=== PATIENT | female | born 1950 | race Caucasian/White ===

== ENCOUNTER 2016-11-01 17:51 | Emergency (ER) | payer MEDICARE ==
[~2016-11-01] VITALS: Ht 157.5 cm; Wt 62.7 kg
[~2016-11-01 17:51] MED LIST: CARB200T PO; OXYC-302 PO; RISP1TAB45 PO
[2016-11-01] MEDS ORDERED: ACETAMINOPHEN 325 MG TABLET PO ONE (18:30)
[2016-11-01] MEDS ORDERED: ACETAMINOPHEN 325 MG TABLET ONE (18:50)
[2016-11-01 20:31] VITALS: BP 128/75
== END 2016-11-01 20:57 | disposition home or self-care (01) ==
LOC: ED 18:54
DX: S39.012A Strain of muscle, fascia and tendon of lower back, initial encounter (principal); G89.29 Other chronic pain; N30.90 Cystitis, unspecified without hematuria; F17.200 Nicotine dependence, unspecified, uncomplicated; X58.XXXA Exposure to other specified factors, initial encounter; Y93.89 Activity, other specified; Y92.89 Other specified places as the place of occurrence of the external cause; Y99.8 Other external cause status
CPT/HCPCS: 72110; 81001; 87086; 99285

== ENCOUNTER 2019-04-23 10:26 | Inpatient (IN) | payer MEDICARE ==
[~2019-04-23] VITALS: Ht 157.5 cm; Wt 53.0 kg
[2019-04-23] MEDS ORDERED: ONDANSETRON ODT 4 MG PO PRN (11:00)
[2019-04-23] MEDS ORDERED: POLYETHYLENE GLYCOL 17 GM PACKET PO PRN (11:00)
[2019-04-23] MEDS ORDERED: DOCUSATE 100 MG CAPSULE PO PRN (11:00)
[2019-04-23] MEDS ORDERED: BISACODYL 10 MG SUPP PR PRN (11:00)
[2019-04-23] MEDS ORDERED: ACETAMINOPHEN 325 MG TABLET PO PRN (11:00)
[2019-04-23 11:56] VITALS: BP 116/75
[2019-04-23] MEDS ORDERED: HYDR50CA PO (11:56)
[2019-04-23] MEDS ORDERED: ZIPR60CA2 PO (11:56)
[2019-04-23] MEDS ORDERED: CILO50TA PO (11:56)
[2019-04-23] MEDS ORDERED: ATOR40TA78 PO (11:56)
[2019-04-23] MEDS ORDERED: CHOL200078 PO (12:18)
[2019-04-23] MEDS ORDERED: HYDROXYZINE PAMOATE 50MG CAP PO PRN (12:30)
[2019-04-23] MEDS: LORazepam 1MG TABLET PO PRN (13:06)
[2019-04-23 15:09] LABS: BASOPHILS # (AUTO) 0.05 x10^3/uL (0-0.1); BASOPHILS % (AUTO) 1 % (0-1); EOSINOPHILS # (AUTO) 0.16 x10^3/uL (0-0.4); EOSINOPHILS % (AUTO) 2 % (1-7); LYMPHOCYTES # (AUTO) 2.27 x10^3/uL (1-3.4); LYMPHOCYTES % (AUTO) 29 % (22-44); MD NO; MEAN CORPUSCULAR HEMOGLOBIN 32.2 pg (27.0-34.8); MEAN CORPUSCULAR HGB CONC 33.2 g/dL (32.4-35.8); MEAN PLATELET VOLUME 7.7 fL (7.4-10.4); MONOCYTES # (AUTO) 1.19 x10^3/uL (0.2-0.8); MONOCYTES % (AUTO) 15 % (2-9); NEUTROPHILS # (AUTO) 4.19 x10^3/uL (1.8-6.8); NEUTROPHILS % (AUTO) 53 % (42-75); PLATELET COUNT 335 x10^3/uL (130-400); RED BLOOD COUNT 4.85 x10^6/uL (3.82-5.3); RED CELL DISTRIBUTION WIDTH 15.1 % (9.6-15.2)
[2019-04-23 15:30] LABS: CHOL/HDL RATIO 2.1; FREE T4 (FREE THYROXINE) 0.94 ng/dL (0.76-1.46); LDL/HDL RATIO 0.9 (0.5-3.0)
[2019-04-23] MEDS: ACAMPROSATE 333 MG TABLET.DR PO SCH ×2 (16:53→20:25)
[2019-04-23 17:52] LABS: MICROSCOPIC AUTO
[2019-04-23 17:55] LABS: CULTURE INDICATED? YES
[2019-04-23 19:30] VITALS: BP 138/82
[2019-04-23] MEDS: ZIPRASIDONE 20MG CAPSULE PO SCH (20:25)
[2019-04-23] MEDS: ATORVASTATIN 40 MG TABLET PO SCH (20:25)
[2019-04-24] MEDS: LORazepam 1MG TABLET PO PRN ×3 (05:35→21:22)
[2019-04-24 07:48] VITALS: BP 127/79
[2019-04-24] MEDS: ACAMPROSATE 333 MG TABLET.DR PO SCH ×3 (08:13→20:46)
[2019-04-24] MEDS: ZIPRASIDONE 20MG CAPSULE PO SCH ×2 (08:13→20:46)
[2019-04-24] MEDS: FOLIC ACID 1 MG TABLET PO SCH (08:13)
[2019-04-24] MEDS: THIAMINE 100MG TABLET PO SCH (08:14)
[2019-04-24] MEDS: NICOTINE 7 MG/24 HR PATCH.TD24 TD SCH (08:14)
[2019-04-24 13:34] LABS: ALANINE AMINOTRANSFERASE 21 U/L (12-78); ALBUMIN 3.6 g/dL (3.4-5.0); ANION GAP 7 mmol/L (5-15); CALCIUM 9.3 mg/dL (8.5-10.1); CHLORIDE 105 mmol/L (98-107); CREATININE 0.77 mg/dL (0.55-1.02)
[2019-04-24 13:37] LABS: ALKALINE PHOSPHATASE 54 U/L (45-117); BILIRUBIN,TOTAL 0.5 mg/dL (0.2-1.0); TOTAL PROTEIN 6.8 g/dL (6.4-8.2)
[2019-04-24] MEDS: FLUOXETINE 10 MG CAP PO SCH (14:43)
[2019-04-24 19:15] VITALS: BP 114/71
[2019-04-24] MEDS: ATORVASTATIN 40 MG TABLET PO SCH (20:46)
[2019-04-25 07:31] VITALS: BP 117/78
[2019-04-25] MEDS: THIAMINE 100MG TABLET PO SCH (08:52)
[2019-04-25] MEDS: FOLIC ACID 1 MG TABLET PO SCH (08:53)
[2019-04-25] MEDS: FLUOXETINE 10 MG CAP PO SCH (08:53)
[2019-04-25] MEDS: ZIPRASIDONE 20MG CAPSULE PO SCH ×2 (08:53→20:25)
[2019-04-25] MEDS: ACAMPROSATE 333 MG TABLET.DR PO SCH ×3 (08:53→20:25)
[2019-04-25] MEDS: NICOTINE 7 MG/24 HR PATCH.TD24 TD SCH (08:54)
[2019-04-25] MEDS: LORazepam 1MG TABLET PO PRN (11:15)
[2019-04-25 20:09] VITALS: BP 103/66
[2019-04-25] MEDS: ATORVASTATIN 40 MG TABLET PO SCH (20:26)
[2019-04-26] MEDS: LORazepam 1MG TABLET PO PRN ×2 (04:20→13:17)
[2019-04-26 07:47] VITALS: BP 105/75
[2019-04-26] MEDS ORDERED: NICOTINE 14MG/24 HR PATCH.TD24 TD ONE (09:00)
[2019-04-26] MEDS: THIAMINE 100MG TABLET PO SCH (10:00)
[2019-04-26] MEDS: ACAMPROSATE 333 MG TABLET.DR PO SCH ×3 (10:00→21:03)
[2019-04-26] MEDS: FLUOXETINE 10 MG CAP PO SCH (10:00)
[2019-04-26] MEDS: FOLIC ACID 1 MG TABLET PO SCH (10:00)
[2019-04-26] MEDS: ZIPRASIDONE 20MG CAPSULE PO SCH ×2 (10:00→21:03)
[2019-04-26 20:10] VITALS: BP 110/75
[2019-04-26] MEDS: ATORVASTATIN 40 MG TABLET PO SCH (21:03)
[2019-04-27] MEDS: LORazepam 1MG TABLET PO PRN ×2 (05:08→13:49)
[2019-04-27 07:50] VITALS: BP 112/73
[2019-04-27] MEDS: FLUOXETINE 10 MG CAP PO SCH (09:04)
[2019-04-27] MEDS: ZIPRASIDONE 20MG CAPSULE PO SCH ×2 (09:04→20:20)
[2019-04-27] MEDS: ACAMPROSATE 333 MG TABLET.DR PO SCH ×3 (09:04→20:20)
[2019-04-27] MEDS: THIAMINE 100MG TABLET PO SCH (09:04)
[2019-04-27] MEDS: FOLIC ACID 1 MG TABLET PO SCH (09:04)
[2019-04-27] MEDS ORDERED: NICOTINE 14MG/24 HR PATCH.TD24 TD SCH (16:30)
[2019-04-27 19:46] VITALS: BP 121/80
[2019-04-27] MEDS: ATORVASTATIN 40 MG TABLET PO SCH (20:20)
[2019-04-28 07:22] VITALS: BP 114/72
[2019-04-28] MEDS: ZIPRASIDONE 20MG CAPSULE PO SCH (08:28)
[2019-04-28] MEDS: THIAMINE 100MG TABLET PO SCH (08:28)
[2019-04-28] MEDS: ACAMPROSATE 333 MG TABLET.DR PO SCH (08:28)
[2019-04-28] MEDS: FOLIC ACID 1 MG TABLET PO SCH (08:28)
[2019-04-28] MEDS: FLUOXETINE 10 MG CAP PO SCH (08:33)
[2019-04-28] MEDS: LORazepam 1MG TABLET PO PRN (08:33)
[2019-04-28] MEDS ORDERED: ATOR40TA78 PO (09:36)
[2019-04-28] MEDS ORDERED: HYDR50CA2 PO (09:36)
[2019-04-28] MEDS ORDERED: ACAM333T7 PO (09:36)
[2019-04-28] MEDS ORDERED: FLUO10CA14 PO (09:36)
[2019-04-28] MEDS ORDERED: ZIPR20CA2 PO (09:36)
[2019-04-28] MEDS ORDERED: NICO-486 TD (09:36)
== END 2019-04-28 11:20 | disposition home or self-care (01) | DRG 885 ==
LOC: 3E 11:18
PROVIDERS: ADMIT Psychiatry & Neurology Psychosomatic Medicine; ATTEND Psychiatry & Neurology Psychosomatic Medicine
DX: F33.2 Major depressive disorder, recurrent severe without psychotic features (principal); R45.851 Suicidal ideations; F20.0 Paranoid schizophrenia; E78.5 Hyperlipidemia, unspecified; F10.20 Alcohol dependence, uncomplicated; F12.90 Cannabis use, unspecified, uncomplicated; F17.210 Nicotine dependence, cigarettes, uncomplicated; G43.909 Migraine, unspecified, not intractable, without status migrainosus; I73.9 Peripheral vascular disease, unspecified; Z79.899 Other long term (current) drug therapy; Z82.5 Family history of asthma and other chronic lower respiratory diseases; Z91.5 Personal history of self-harm; Z83.6 Family history of other diseases of the respiratory system; Y90.9 Presence of alcohol in blood, level not specified; Z88.0 Allergy status to penicillin
CPT/HCPCS: 36415; 71045; 80053; 80061; 81001; 82140; 84439; 84443; 85025; 87086; 93005

== ENCOUNTER 2019-05-16 14:25 | Emergency (ER) | payer MEDICARE ==
[~2019-05-16] VITALS: Ht 157.5 cm; Wt 45.5 kg
[~2019-05-16 14:25] MED LIST changes: +ACAM333T7 PO; +ATOR40TA78 PO; +CHOL200078 PO; +CILO50TA PO; +FLUO10CA14 PO; +HYDR50CA PO; +HYDR50CA2 PO; +NICO-486 TD; +ZIPR20CA2 PO; +ZIPR60CA2 PO
[2019-05-16 14:55] LABS: BASOPHILS # (AUTO) 0.08 x10^3/uL (0-0.1); BASOPHILS % (AUTO) 1 % (0-1); EOSINOPHILS # (AUTO) 0.17 x10^3/uL (0-0.4); EOSINOPHILS % (AUTO) 2 % (1-7); LYMPHOCYTES # (AUTO) 3.36 x10^3/uL (1-3.4); LYMPHOCYTES % (AUTO) 33 % (22-44); MD NO; MEAN CORPUSCULAR HEMOGLOBIN 32.6 pg (27.0-34.8); MEAN CORPUSCULAR HGB CONC 33.7 g/dL (32.4-35.8); MEAN CORPUSCULAR VOLUME 96.8 fL (80-100); MEAN PLATELET VOLUME 7.2 fL (7.4-10.4); MONOCYTES # (AUTO) 0.82 x10^3/uL (0.2-0.8); MONOCYTES % (AUTO) 8 % (2-9); NEUTROPHILS # (AUTO) 5.68 x10^3/uL (1.8-6.8); NEUTROPHILS % (AUTO) 56 % (42-75); PLATELET COUNT 410 x10^3/uL (130-400); RED BLOOD COUNT 4.64 x10^6/uL (3.82-5.3); RED CELL DISTRIBUTION WIDTH 15.6 % (9.6-15.2)
[2019-05-16 15:07] LABS: ALBUMIN 3.9 g/dL (3.4-5.0); ANION GAP 8 mmol/L (5-15); CALCIUM 9.2 mg/dL (8.5-10.1); CHLORIDE 112 mmol/L (98-107); CREATININE 0.63 mg/dL (0.55-1.02); SALICYLATE LEVEL 5.1 mg/dL (2.8-20.0)
--- NOTE | 2019-05-16 15:38 | NUR ---
LATE NOTE ENTRY FOR 1450: PT BIB EMS FROM HOME WITH C/O SI WITH PLAN TO OD ON HOME MEDS MIXED WITH ALCOHOL. PT HAS ETOH ODOR AND STATES LAST DRINK WAS 20 MINUTES PRIOR TO ARRIVAL. PT DENIES HI. Pt belongings removed and placed in ED locker for safe keeping. Pt in hospital gown. Sitter at bedside in direct line of sight for observation. Pt connected to satellite project site monitor, NIBP cuff, and continous pulse ox monitor.
--- NOTE | 2019-05-16 15:42 | NUR ---
Pt resting with eyes closed on gurney with even chest rise and fall. Sitter near doorway in direct line of sight of observation. Pt remains connected to basic combatant swimmer, nibp cuff, and continous pulse ox monitor. No needs expressed at this time. Food tray provided for pt to sitter.
--- NOTE | 2019-05-16 16:18 | NUR ---
Psych PROGRAM ARRANGER attempted to see pt. Pt intoxicated. Psych PROGRAM ARRANGER to revisit with pt tomorrow.
--- NOTE | 2019-05-16 16:19 | NUR ---
Pt resting on gurney in SI/HI secured room with sitter in directl line of sight for observation. No needs expressed at this time.
--- NOTE | 2019-05-16 16:37 | NUR ---
Pt ambulates from room to bathroom with steady gait and balance. Pt provided urine sample. UA sent to lab. Pt back to room and is sitting on gurney. Pt talking to sitter. Pt declines food at this time. Room secured for SI/HI precautions. No needs expressed at this time.
--- NOTE | 2019-05-16 16:42 | NUR ---
Hospital bed requested for pt.
[2019-05-16 16:57] LABS: AMPHETAMINE SCREEN, URINE Negative (Negative); BARBITURATE SCREEN, URINE Negative (Negative); BENZODIAZEPINE SCREEN, URINE Negative (Negative); CANNABINOID SCREEN, URINE Positive (Negative); COCAINE SCREEN, URINE Negative (Negative); METHADONE SCREEN, URINE Negative (Negative); OPIATE SCREEN, URINE Negative (Negative)
--- NOTE | 2019-05-16 16:57 | NUR ---
Pt offered a hospital bed. Pt declined and stated, "I don't want the hospital bed."
--- NOTE | 2019-05-16 17:37 | NUR ---
Pt provided water and decaf coffee per request. No other needs expressed at this time. Pt declining food offered. Pt declining hospital bed offered. Pt sitting on gurney talking to sitter. Room secured for SI/HI. Sitter in direct line of sight for observation.
--- NOTE | 2019-05-16 18:18 | NUR ---
Pt ambulates with sitter with steady gait and balance to restroom. No other needs expressed at this time.
--- NOTE | 2019-05-16 18:59 | NUR ---
Provided bedside report to HUGH Devine. All questions answered. HUGH Devine to assume care of pt at this time.
[2019-05-16] MEDS ORDERED: ACETAMINOPHEN 325 MG TABLET ONE (19:53)
[2019-05-16] MEDS ORDERED: ACETAMINOPHEN 325 MG TABLET PO ONE (20:00)
--- NOTE | 2019-05-16 20:04 | NUR ---
Attempted to breathalyze pt and she was unable to.
--- NOTE | 2019-05-16 23:16 | NUR ---
TP RN: TELEPSYCH CONSULT INITIATED.
--- NOTE | 2019-05-16 23:45 | NUR ---
Tele psych taking place.
--- NOTE | 2019-05-17 01:30 | NUR ---
Referral was faxed to [facility], [facility], [facility], [facility], AND [facility] Called the [facility] to come see pt. For possible admit to the unit.
[2019-05-17 02:21] VITALS: BP 124/74
--- NOTE | 2019-05-17 02:23 | NUR ---
Report given to Jessica at [facility], still pending approval.
--- NOTE | 2019-05-17 03:01 | NUR ---
Pt has no life time days with her medicare according to [facility] and [facility].
--- NOTE | 2019-05-17 03:16 | NUR ---
Report given to lan Phelps to go inpatient psych at [phone].
== END 2019-05-17 03:44 | disposition home or self-care (01) ==
LOC: ED 15:06
DX: F10.229 Alcohol dependence with intoxication, unspecified (principal); R45.851 Suicidal ideations; G40.909 Epilepsy, unspecified, not intractable, without status epilepticus; F17.200 Nicotine dependence, unspecified, uncomplicated; Y90.9 Presence of alcohol in blood, level not specified
CPT/HCPCS: 36415; 80048; 80307; 82040; 85025; 99285

== ENCOUNTER 2019-05-17 03:44 | Inpatient (IN) | payer MEDICARE ==
[~2019-05-17] VITALS: Ht 157.5 cm; Wt 54.1 kg
[2019-05-17 03:45] VITALS: BP_SYST 149; BP_SYST 151; BP_DIAS 81; BP_DIAS 83
[2019-05-17] MEDS ORDERED: BISACODYL 10 MG SUPP PR PRN (04:00)
[2019-05-17] MEDS ORDERED: ACETAMINOPHEN 325 MG TABLET PO PRN (04:00)
[2019-05-17] MEDS ORDERED: DOCUSATE 100 MG CAPSULE PO PRN (04:00)
[2019-05-17] MEDS ORDERED: HYDROXYZINE PAMOATE 25MG CAP PO PRN (04:00)
[2019-05-17] MEDS ORDERED: POLYETHYLENE GLYCOL 17 GM PACKET PO PRN (04:00)
[2019-05-17] MEDS ORDERED: LORazepam 1MG TABLET PO PRN ×2 (04:30→08:30)
[2019-05-17 04:54] VITALS: BP 151/83
[2019-05-17] MEDS ORDERED: HYDROXYZINE PAMOATE 25MG CAP ONE (05:08)
[2019-05-17] MEDS: HYDROXYZINE PAMOATE 50MG CAP PO PRN (05:12)
[2019-05-17 07:25] VITALS: BP 175/78
[2019-05-17] MEDS ORDERED: LORazepam 0.5MG TABLET PO PRN (08:30)
[2019-05-17] MEDS: LORazepam 1MG TABLET PO PRN (08:47)
[2019-05-17] MEDS: CHOLECALCIFEROL 1,000 UNIT TABLET PO SCH (08:47)
[2019-05-17] MEDS: NICOTINE 21 MG/24 HR PATCH.TD24 TD SCH (08:48)
[2019-05-17] MEDS ORDERED: SENNA/DOCUSATE TABLET PO PRN (09:00)
[2019-05-17 12:01] VITALS: BP 155/82
[2019-05-17 12:09] LABS: MICROSCOPIC INDICATED
[2019-05-17 12:24] LABS: CULTURE INDICATED? NO
[2019-05-17] MEDS: FLUOXETINE 10 MG CAP PO SCH (14:36)
[2019-05-17] MEDS: ACAMPROSATE 333 MG TABLET.DR PO SCH ×2 (16:40→20:57)
[2019-05-17] MEDS: ACETAMINOPHEN 325 MG TABLET PO PRN (16:41)
[2019-05-17 20:42] VITALS: BP 150/80
[2019-05-17] MEDS: ATORVASTATIN 40 MG TABLET PO SCH (20:57)
[2019-05-17] MEDS: ZIPRASIDONE 20MG CAPSULE PO SCH (20:57)
[2019-05-18] MEDS ORDERED: HYDROXYZINE PAMOATE 25MG CAP ONE (04:37)
[2019-05-18] MEDS: ACETAMINOPHEN 325 MG TABLET PO PRN (04:38)
[2019-05-18] MEDS: HYDROXYZINE PAMOATE 50MG CAP PO PRN (04:39)
[2019-05-18] MEDS: ASPIRIN 81 MG TABLET EC PO SCH (06:19)
[2019-05-18 07:20] VITALS: BP 146/84
[2019-05-18] MEDS: FLUOXETINE 10 MG CAP PO SCH (08:22)
[2019-05-18] MEDS: ZIPRASIDONE 20MG CAPSULE PO SCH ×2 (08:22→21:40)
[2019-05-18] MEDS: CHOLECALCIFEROL 1,000 UNIT TABLET PO SCH (08:22)
[2019-05-18] MEDS: ACAMPROSATE 333 MG TABLET.DR PO SCH ×3 (08:22→21:41)
[2019-05-18] MEDS: NICOTINE 21 MG/24 HR PATCH.TD24 TD SCH (08:25)
[2019-05-18] MEDS: LORazepam 1MG TABLET PO PRN (08:32)
[2019-05-18 08:54] LABS: ANION GAP 7 mmol/L (5-15); BASOPHILS # (AUTO) 0.03 x10^3/uL (0-0.1); BASOPHILS % (AUTO) 0 % (0-1); CALCIUM 9.1 mg/dL (8.5-10.1); CHLORIDE 102 mmol/L (98-107); CREATININE 0.79 mg/dL (0.55-1.02); EOSINOPHILS % (AUTO) 2 % (1-7); LYMPHOCYTES # (AUTO) 1.89 x10^3/uL (1-3.4); LYMPHOCYTES % (AUTO) 29 % (22-44); MD NO; MEAN CORPUSCULAR HGB CONC 34.1 g/dL (32.4-35.8); MEAN CORPUSCULAR VOLUME 96.8 fL (80-100); MEAN PLATELET VOLUME 7.2 fL (7.4-10.4); MONOCYTES % (AUTO) 9 % (2-9); NEUTROPHILS # (AUTO) 3.86 x10^3/uL (1.8-6.8); NEUTROPHILS % (AUTO) 60 % (42-75); PLATELET COUNT 359 x10^3/uL (130-400); RED BLOOD COUNT 4.83 x10^6/uL (3.82-5.3)
[2019-05-18 09:19] LABS: FREE T4 (FREE THYROXINE) 1.06 ng/dL (0.76-1.46)
[2019-05-18 19:42] VITALS: BP 102/66
[2019-05-18] MEDS: ATORVASTATIN 40 MG TABLET PO SCH (21:41)
[2019-05-19] MEDS ORDERED: HYDROXYZINE PAMOATE 25MG CAP ONE (01:32)
[2019-05-19] MEDS: HYDROXYZINE PAMOATE 50MG CAP PO PRN (01:33)
[2019-05-19] MEDS: ASPIRIN 81 MG TABLET EC PO SCH (05:37)
[2019-05-19 08:24] VITALS: BP 112/74
[2019-05-19] MEDS: CHOLECALCIFEROL 1,000 UNIT TABLET PO SCH (08:34)
[2019-05-19] MEDS: NICOTINE 21 MG/24 HR PATCH.TD24 TD SCH (08:34)
[2019-05-19] MEDS: ZIPRASIDONE 20MG CAPSULE PO SCH ×2 (08:34→20:53)
[2019-05-19] MEDS: ACAMPROSATE 333 MG TABLET.DR PO SCH ×3 (08:34→20:53)
[2019-05-19] MEDS: FLUOXETINE 10 MG CAP PO SCH (08:34)
[2019-05-19] MEDS: LORazepam 0.5MG TABLET PO PRN ×2 (15:01→23:46)
[2019-05-19 19:40] VITALS: BP 111/72
[2019-05-19] MEDS: ATORVASTATIN 40 MG TABLET PO SCH (20:53)
[2019-05-20] MEDS: ASPIRIN 81 MG TABLET EC PO SCH (05:58)
[2019-05-20 07:42] VITALS: BP 123/81
[2019-05-20] MEDS: ACAMPROSATE 333 MG TABLET.DR PO SCH ×3 (09:04→20:20)
[2019-05-20] MEDS: ZIPRASIDONE 20MG CAPSULE PO SCH ×2 (09:04→20:20)
[2019-05-20] MEDS: FLUOXETINE 10 MG CAP PO SCH (09:04)
[2019-05-20] MEDS: CHOLECALCIFEROL 1,000 UNIT TABLET PO SCH (09:04)
[2019-05-20] MEDS: NICOTINE 21 MG/24 HR PATCH.TD24 TD SCH (09:08)
[2019-05-20] MEDS: LORazepam 0.5MG TABLET PO PRN (10:53)
[2019-05-20] MEDS: HYDROXYZINE PAMOATE 50MG CAP PO PRN (15:53)
[2019-05-20] MEDS: ATORVASTATIN 40 MG TABLET PO SCH (20:20)
[2019-05-20 20:28] VITALS: BP 95/60
[2019-05-21] MEDS: LORazepam 0.5MG TABLET PO PRN ×3 (00:03→17:42)
[2019-05-21] MEDS ORDERED: HYDROXYZINE PAMOATE 25MG CAP ONE (05:31)
[2019-05-21] MEDS: ASPIRIN 81 MG TABLET EC PO SCH (05:40)
[2019-05-21] MEDS: HYDROXYZINE PAMOATE 50MG CAP PO PRN (05:42)
[2019-05-21 07:49] VITALS: BP 101/67
[2019-05-21] MEDS: ZIPRASIDONE 20MG CAPSULE PO SCH ×2 (08:41→20:13)
[2019-05-21] MEDS: ACAMPROSATE 333 MG TABLET.DR PO SCH ×3 (08:41→20:12)
[2019-05-21] MEDS: FLUOXETINE 10 MG CAP PO SCH (08:41)
[2019-05-21] MEDS: NICOTINE 21 MG/24 HR PATCH.TD24 TD SCH (08:41)
[2019-05-21] MEDS: CHOLECALCIFEROL 1,000 UNIT TABLET PO SCH (08:45)
[2019-05-21 19:30] VITALS: BP 104/70
[2019-05-21] MEDS: ATORVASTATIN 40 MG TABLET PO SCH (20:13)
[2019-05-22] MEDS: ASPIRIN 81 MG TABLET EC PO SCH (05:18)
[2019-05-22] MEDS: LORazepam 0.5MG TABLET PO PRN ×2 (05:18→13:33)
[2019-05-22 07:00] VITALS: BP 108/75
[2019-05-22] MEDS: CHOLECALCIFEROL 1,000 UNIT TABLET PO SCH (08:18)
[2019-05-22] MEDS: FLUOXETINE 10 MG CAP PO SCH (08:19)
[2019-05-22] MEDS: ACAMPROSATE 333 MG TABLET.DR PO SCH ×3 (08:19→20:14)
[2019-05-22] MEDS: ZIPRASIDONE 20MG CAPSULE PO SCH ×2 (08:19→20:14)
[2019-05-22] MEDS: NICOTINE 21 MG/24 HR PATCH.TD24 TD SCH (08:28)
[2019-05-22] MEDS ORDERED: HYDROXYZINE PAMOATE 25MG CAP ONE ×2 (09:31→20:12)
[2019-05-22] MEDS: HYDROXYZINE PAMOATE 50MG CAP PO PRN ×2 (09:34→20:15)
[2019-05-22 19:29] VITALS: BP 103/70
[2019-05-22] MEDS: ATORVASTATIN 40 MG TABLET PO SCH (20:14)
[2019-05-23] MEDS: LORazepam 0.5MG TABLET PO PRN ×2 (02:07→21:14)
[2019-05-23] MEDS: ASPIRIN 81 MG TABLET EC PO SCH (06:02)
[2019-05-23 07:42] VITALS: BP 113/77
[2019-05-23] MEDS: NICOTINE 21 MG/24 HR PATCH.TD24 TD SCH (07:47)
[2019-05-23] MEDS: FLUOXETINE 10 MG CAP PO SCH (07:48)
[2019-05-23] MEDS: ZIPRASIDONE 20MG CAPSULE PO SCH ×2 (07:48→20:27)
[2019-05-23] MEDS: ACAMPROSATE 333 MG TABLET.DR PO SCH ×3 (07:48→20:29)
[2019-05-23] MEDS: CHOLECALCIFEROL 1,000 UNIT TABLET PO SCH (07:49)
[2019-05-23] MEDS ORDERED: HYDROXYZINE PAMOATE 25MG CAP ONE ×2 (10:48→21:12)
[2019-05-23] MEDS: HYDROXYZINE PAMOATE 50MG CAP PO PRN ×2 (10:50→21:14)
[2019-05-23 20:00] VITALS: BP 102/69
[2019-05-23] MEDS: ATORVASTATIN 40 MG TABLET PO SCH (20:28)
[2019-05-24] MEDS: ASPIRIN 81 MG TABLET EC PO SCH (05:36)
[2019-05-24 07:30] VITALS: BP 116/72
[2019-05-24] MEDS: ZIPRASIDONE 20MG CAPSULE PO SCH ×2 (09:33→20:37)
[2019-05-24] MEDS: FLUOXETINE 10 MG CAP PO SCH (09:33)
[2019-05-24] MEDS: ACAMPROSATE 333 MG TABLET.DR PO SCH ×3 (09:43→20:36)
[2019-05-24] MEDS: NICOTINE 21 MG/24 HR PATCH.TD24 TD SCH (09:43)
[2019-05-24] MEDS: CHOLECALCIFEROL 1,000 UNIT TABLET PO SCH (09:43)
[2019-05-24] MEDS: LORazepam 0.5MG TABLET PO PRN ×2 (09:51→20:37)
[2019-05-24] MEDS ORDERED: HYDROXYZINE PAMOATE 25MG CAP ONE (12:37)
[2019-05-24] MEDS: ACETAMINOPHEN 325 MG TABLET PO PRN (14:20)
[2019-05-24 19:30] VITALS: BP 111/73
[2019-05-24] MEDS: ATORVASTATIN 40 MG TABLET PO SCH (20:37)
[2019-05-25] MEDS: ASPIRIN 81 MG TABLET EC PO SCH (05:44)
[2019-05-25 07:30] VITALS: BP 114/82
[2019-05-25] MEDS: ACETAMINOPHEN 325 MG TABLET PO PRN (08:01)
[2019-05-25] MEDS: ACAMPROSATE 333 MG TABLET.DR PO SCH ×3 (08:23→20:26)
[2019-05-25] MEDS: CHOLECALCIFEROL 1,000 UNIT TABLET PO SCH (08:23)
[2019-05-25] MEDS: ZIPRASIDONE 20MG CAPSULE PO SCH ×2 (08:23→20:27)
[2019-05-25] MEDS: FLUOXETINE 10 MG CAP PO SCH (08:23)
[2019-05-25] MEDS: NICOTINE 21 MG/24 HR PATCH.TD24 TD SCH (08:24)
[2019-05-25] MEDS ORDERED: HYDROXYZINE PAMOATE 25MG CAP ONE (12:19)
[2019-05-25] MEDS: HYDROXYZINE PAMOATE 50MG CAP PO PRN (12:34)
[2019-05-25 19:34] VITALS: BP 102/69
[2019-05-25] MEDS: LORazepam 0.5MG TABLET PO PRN (19:37)
[2019-05-25] MEDS: ATORVASTATIN 40 MG TABLET PO SCH (20:26)
[2019-05-26] MEDS: ASPIRIN 81 MG TABLET EC PO SCH (05:06)
[2019-05-26] MEDS ORDERED: HYDROXYZINE PAMOATE 25MG CAP ONE (06:09)
[2019-05-26] MEDS: HYDROXYZINE PAMOATE 50MG CAP PO PRN (06:11)
[2019-05-26 07:31] VITALS: BP 132/81
[2019-05-26] MEDS: CHOLECALCIFEROL 1,000 UNIT TABLET PO SCH (08:13)
[2019-05-26] MEDS: ACAMPROSATE 333 MG TABLET.DR PO SCH (08:14)
[2019-05-26] MEDS: FLUOXETINE 10 MG CAP PO SCH (08:14)
[2019-05-26] MEDS: ZIPRASIDONE 20MG CAPSULE PO SCH (08:14)
[2019-05-26] MEDS: NICOTINE 21 MG/24 HR PATCH.TD24 TD SCH (08:16)
[2019-05-26] MEDS ORDERED: ZIPR20CA2 PO (10:29)
[2019-05-26] MEDS ORDERED: ACAM333T7 PO (10:29)
[2019-05-26] MEDS ORDERED: FLUO10CA14 PO (10:29)
[2019-05-26] MEDS ORDERED: NICO-487 TD (10:29)
[2019-05-26] MEDS ORDERED: HYDR50CA2 PO (10:29)
[2019-05-26] MEDS ORDERED: ASPI81TA45 PO (10:29)
[2019-05-26] MEDS ORDERED: CHOL10003 PO (10:29)
[2019-06-21] MEDS ORDERED: HYDR50CA PO (13:35)
[2019-06-21] MEDS ORDERED: FLUO20CA23 PO (13:35)
[2019-06-21] MEDS ORDERED: ZIPR40CA2 PO (13:35)
[2019-06-21] MEDS ORDERED: NICO-486 TD (13:35)
[2019-06-21] MEDS ORDERED: MULT1TAB60 PO (13:35)
[2019-06-25] MEDS ORDERED: ATOR40TA PO (10:10)
== END 2019-05-26 11:00 | DRG 885 ==
LOC: 3E 03:44
PROVIDERS: ADMIT Psychiatry & Neurology Psychosomatic Medicine; ATTEND Psychiatry & Neurology Psychosomatic Medicine
DX: F33.2 Major depressive disorder, recurrent severe without psychotic features (principal); R45.851 Suicidal ideations; E78.5 Hyperlipidemia, unspecified; F10.229 Alcohol dependence with intoxication, unspecified; F12.10 Cannabis abuse, uncomplicated; F17.210 Nicotine dependence, cigarettes, uncomplicated; F20.0 Paranoid schizophrenia; G43.909 Migraine, unspecified, not intractable, without status migrainosus; G47.00 Insomnia, unspecified; I25.10 Atherosclerotic heart disease of native coronary artery without angina pectoris; I10 Essential (primary) hypertension; I73.9 Peripheral vascular disease, unspecified; Z79.82 Long term (current) use of aspirin; Z88.0 Allergy status to penicillin; Z79.899 Other long term (current) drug therapy; Z82.5 Family history of asthma and other chronic lower respiratory diseases
CPT/HCPCS: 36415; 80048; 80307; 81001; 82040; 82140; 82607; 84439; 84443; 85025; 93005; 99285

== ENCOUNTER 2019-06-07 16:49 | Emergency (ER) | payer MEDICARE ==
[~2019-06-07] VITALS: Ht 157.5 cm; Wt 61.5 kg
[~2019-06-07 16:49] MED LIST changes: +ASPI81TA45 PO; +CHOL10003 PO; +NICO-487 TD
--- NOTE | 2019-06-07 16:58 | NUR ---
BELOW IS A LIST OF BLISTER PACK MEDS THAT PT HAD IN HER POSSESION. I HAVE LISTED THE MED, DATE RX FILLED, NUMBER OF PILLS ISSUED AND NUMBER OF PILLS REMAINING ATORVASTATIN 40MG FILLED 04/11 QTY 30 12 REMAINING HYDROXIZINE 50MG FILLED 3/ QTY 30 0 REMAINING ZIPRASIDONE 60MG FILLED 04/08 QTY 30 7 REMAINING MVI/D3/ZIPRASADONE 60MG FILLED 04/11 6 REMAINING FLUOXETINE 10MG FILLED 3/5 QTY 30 4 REMAINING HYDROXIZINE 50MG FILLED 03/10 QTY 30 [address]AIN[address] JERR[address] 333MG FILLED 3/5 QTY 52 AND 52 REMAINING
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
--- NOTE | 2019-06-07 17:02 | NUR ---
EKG AND VITALS OBTAINED BY THIS TECH
--- NOTE | 2019-06-07 17:30 | NUR ---
MOLDED PARTS INSPECTOR: MEGHAN REQUESTED FROM [facility]
[2019-06-07 17:33] LABS: ALBUMIN 3.6 g/dL (3.4-5.0); ANION GAP 9 mmol/L (5-15); CALCIUM 8.8 mg/dL (8.5-10.1); CHLORIDE 109 mmol/L (98-107); SALICYLATE LEVEL 5.2 mg/dL (2.8-20.0)
[2019-06-07 17:35] LABS: ALANINE AMINOTRANSFERASE 50 U/L (12-78); ALKALINE PHOSPHATASE 60 U/L (45-117); BASOPHILS # (AUTO) 0.01 x10^3/uL (0-0.1); BASOPHILS % (AUTO) 0 % (0-1); BILIRUBIN,TOTAL 0.3 mg/dL (0.2-1.0); CREATININE 0.58 mg/dL (0.55-1.02); EOSINOPHILS % (AUTO) 2 % (1-7); LYMPHOCYTES # (AUTO) 2.67 x10^3/uL (1-3.4); LYMPHOCYTES % (AUTO) 40 % (22-44); MD NO; MEAN CORPUSCULAR HEMOGLOBIN 32.3 pg (27.0-34.8); MEAN CORPUSCULAR HGB CONC 33.3 g/dL (32.4-35.8); MEAN PLATELET VOLUME 7.3 fL (7.4-10.4); MONOCYTES # (AUTO) 0.45 x10^3/uL (0.2-0.8); MONOCYTES % (AUTO) 7 % (2-9); NEUTROPHILS # (AUTO) 3.43 x10^3/uL (1.8-6.8); NEUTROPHILS % (AUTO) 52 % (42-75); PLATELET COUNT 368 x10^3/uL (130-400); RED BLOOD COUNT 4.45 x10^6/uL (3.82-5.3); RED CELL DISTRIBUTION WIDTH 15.3 % (9.6-15.2); TOTAL PROTEIN 6.8 g/dL (6.4-8.2)
--- NOTE | 2019-06-07 17:37 | NUR ---
CLOTHES, PURSE AND MEDICATIONS IN BELONGINGS BAGS X 2. LABELED AND DOUBLE BAGGED AND PLACED IN LOCKER. VIDEO GAME SCRIPT WRITER, YAIMA AWARE THAT MEDS WERE PLACED IN [facility] WILL NOT ACCEPT MEDICATIONS FROM THE [facility]
[2019-06-07 17:46] LABS: AMPHETAMINE SCREEN, URINE Negative (Negative); BARBITURATE SCREEN, URINE Negative (Negative); BENZODIAZEPINE SCREEN, URINE Negative (Negative); CANNABINOID SCREEN, URINE Negative (Negative); COCAINE SCREEN, URINE Negative (Negative); METHADONE SCREEN, URINE Negative (Negative); OPIATE SCREEN, URINE Negative (Negative)
[2019-06-07] MEDS ORDERED: SODIUM CHLORIDE 0.9% 1,000ML IVBOLUS ONE (18:00)
[2019-06-07] MEDS ORDERED: SODIUM CHLORIDE FLUSH 10ML SYR IVF ONE (18:00)
--- NOTE | 2019-06-07 18:18 | NUR ---
SUICIDE MEAL TRAY PROVIDED
--- NOTE | 2019-06-07 18:45 | NUR ---
REPORT TO HUGH BECK.
--- NOTE | 2019-06-07 18:53 | NUR ---
Report recieved from Clara REESE. Pt moved to 1, room secured, sitter at bedside.
--- NOTE | 2019-06-07 18:59 | NUR ---
Report given to Beth REESE.
--- NOTE | 2019-06-07 19:04 | NUR ---
Report received from HUGH Sailnas
--- NOTE | 2019-06-07 20:34 | NUR ---
PATIENT RESTING ON GURNEY, RESPIRATIONS EVEN AND UNLABORED. VSS, SPO2 AND BP MONITORING IN PLACE. SITTER AT DOOR
--- NOTE | 2019-06-07 20:35 | NUR ---
CALL PLACED TO HOUSEKEEPING FOR HOSPITAL BED
--- NOTE | 2019-06-07 21:26 | NUR ---
PATIENT RESTING ON GURNEY, RESPIRATIONS EVEN AND UNLABORED. VSS, SPO2 AND BP MONITORING IN PLACE. SITTER AT DOOR
--- NOTE | 2019-06-07 22:30 | NUR ---
PATIENT TRANSFERRED TO HOSPITAL BED. PIV REMOVED PER PATIENT REQUEST, AND OKAY WITH
[2019-06-07 22:41] LABS: MICROSCOPIC INDICATED
[2019-06-07 22:42] LABS: CULTURE INDICATED? YES
--- NOTE | 2019-06-07 23:44 | NUR ---
PATIENT SLEEPING IN HOSPITAL BED, RESPIRATIONS EVEN AND UNLABORED. VSS. SITTER AT DOOR
--- NOTE | 2019-06-08 00:27 | NUR ---
BREAK RN: PT SLEEPING, NO DISTRESS NOTED. ROOM REMAINS SECURE WITH SITTER OUTSIDE DOOR.
--- NOTE | 2019-06-08 01:30 | NUR ---
PATIENT SLEEPING IN HOSPITAL BED, RESPIRATIONS EVEN AND UNLABORED. VSS. SITTER AT DOOR
--- NOTE | 2019-06-08 02:29 | NUR ---
PATIENT SLEEPING IN HOSPITAL BED, RESPIRATIONS EVEN AND UNLABORED. VSS. SITTER AT DOOR
--- NOTE | 2019-06-08 03:32 | NUR ---
PATIENT SLEEPING IN HOSPITAL BED, RESPIRATIONS EVEN AND UNLABORED. VSS. SITTER AT DOOR
--- NOTE | 2019-06-08 04:25 | NUR ---
PATIENT AMBULATORY WITH STEADY GAIT TO RESTROOM. BREATHALYZER 0.000
--- NOTE | 2019-06-08 04:43 | NUR ---
REPORT RECEIVED FROM BARTOLOME Christensen RN.
--- NOTE | 2019-06-08 04:45 | NUR ---
REPORT GIVEN TO HUGH CASTRO
--- NOTE | 2019-06-08 05:23 | NUR ---
Patient now sober so packet faxed to [facility], , [facility], [facility], and [facility]. Not faxed to [facility] as they are full at this time. Conformations received.
--- NOTE | 2019-06-08 05:35 | NUR ---
PT RESTING ON HOSPITAL BED WATCHING TV. PT DENIES ANY NEEDS AT THIS TIME. SITTER IN HALLWAY WITHIN LINE OF SIGHT, ROOM SECURED.
--- NOTE | 2019-06-08 05:53 | NUR ---
Patient out of "lifetime days" per Erin from [facility] so patient denied.
--- NOTE | 2019-06-08 06:00 | NUR ---
PT RESTING ON HOSPITAL BED WITH EYES CLOSED, RESPIRATIONS EVEN AND NONLABORED. ROOM SECURED, SITTER IN HALLWAY WITHIN LINE OF SIGHT.
[2019-06-08] MEDS ORDERED: LORazepam 1MG TABLET ONE (06:47)
--- NOTE | 2019-06-08 06:50 | NUR ---
PT AWAKE AND UP TO BATHROOM. PT REQUESTED ATIVAN STATES "I FEEL ANXIOUS, IM BREATHING FAST I NEED ATIVAN". PT MEDICATED PER APR. PT BACK TO HOSPITAL BED. SITTER IN HALLWAY WITHIN LINE OF SIGHT, ROOM SECURED.
[2019-06-08] MEDS ORDERED: LORazepam 1MG TABLET PO ONE (07:00)
--- NOTE | 2019-06-08 08:00 | NUR ---
PT PROVIDED WITH MEAL TRAY, SUICIDE REASSEMENT COMPLETED. SI PRECAUTIONS OBSERVED. NO OTHER NEEDS AT THIS TIME
[2019-06-08 08:06] VITALS: BP 149/83
--- NOTE | 2019-06-08 11:03 | NUR ---
[facility] and [facility] require a negative covid in order to consider accepting pt.
--- NOTE | 2019-06-08 11:18 | NUR ---
PT RESTING ON BED, UP TO BR WITH STEADY GAIT, BACK TO HOSPITAL BED. REPORTS NO NEEDS AT THIS TIME, SITTER REMAINS IN PLACE
[2019-06-21] MEDS ORDERED: FLUO20CA23 PO (13:35)
[2019-06-21] MEDS ORDERED: MULT1TAB60 PO (13:35)
[2019-06-21] MEDS ORDERED: HYDR50CA PO (13:35)
[2019-06-21] MEDS ORDERED: ZIPR40CA2 PO (13:35)
[2019-06-21] MEDS ORDERED: NICO-486 TD (13:35)
[2019-06-25] MEDS ORDERED: ATOR40TA PO (10:10)
== END 2019-06-08 13:54 | disposition home or self-care (01) ==
LOC: ED 17:23
DX: T43.592A Poisoning by other antipsychotics and neuroleptics, intentional self-harm, initial encounter (principal); T46.6X2A Poisoning by antihyperlipidemic and antiarteriosclerotic drugs, intentional self-harm, initial encounter; R45.851 Suicidal ideations; F10.220 Alcohol dependence with intoxication, uncomplicated; G92 Toxic encephalopathy; G40.909 Epilepsy, unspecified, not intractable, without status epilepticus; F32.9 Major depressive disorder, single episode, unspecified; F39 Unspecified mood [affective] disorder; I95.9 Hypotension, unspecified; R94.31 Abnormal electrocardiogram [ECG] [EKG]; Y92.9 Unspecified place or not applicable; Y90.0 Blood alcohol level of less than 20 mg/100 ml
CPT/HCPCS: 36415; 71045; 80053; 80307; 81001; 83735; 84443; 85025; 87086; 93005; 99291; J7030; 99285

== ENCOUNTER → 2019-06-13 | Emergency (ER) | payer MEDICARE ==
[~2019-06-13] VITALS: Ht 160 cm; Wt 70.0 kg
[~2019-06-13] MED LIST changes: +ACETAMINOPHEN 500 MG TABLET ONE; +ACETAMINOPHEN 500 MG TABLET PO ONE; +ATOR40TA PO; +FLUO20CA23 PO; +LORazepam 1MG TABLET ONE; +LORazepam 1MG TABLET PO ONE; +MULT1TAB60 PO; +ZIPR40CA2 PO
[2019-06-13 15:28] LABS: BASOPHILS # (AUTO) 0.11 x10^3/uL (0-0.1); BASOPHILS % (AUTO) 2 % (0-1); EOSINOPHILS # (AUTO) 0.06 x10^3/uL (0-0.4); EOSINOPHILS % (AUTO) 1 % (1-7); LYMPHOCYTES # (AUTO) 2.44 x10^3/uL (1-3.4); LYMPHOCYTES % (AUTO) 38 % (22-44); MD NO; MEAN CORPUSCULAR HEMOGLOBIN 32.5 pg (27.0-34.8); MEAN CORPUSCULAR HGB CONC 32.9 g/dL (32.4-35.8); MEAN CORPUSCULAR VOLUME 98.6 fL (80-100); MEAN PLATELET VOLUME 7.1 fL (7.4-10.4); MONOCYTES # (AUTO) 0.66 x10^3/uL (0.2-0.8); MONOCYTES % (AUTO) 10 % (2-9); NEUTROPHILS # (AUTO) 3.23 x10^3/uL (1.8-6.8); NEUTROPHILS % (AUTO) 50 % (42-75); PLATELET COUNT 320 x10^3/uL (130-400); RED BLOOD COUNT 4.27 x10^6/uL (3.82-5.3); RED CELL DISTRIBUTION WIDTH 16.4 % (9.6-15.2)
[2019-06-13 15:56] LABS: ALANINE AMINOTRANSFERASE 222 U/L (12-78); ALBUMIN 3.5 g/dL (3.4-5.0); ANION GAP 7 mmol/L (5-15); CALCIUM 8.7 mg/dL (8.5-10.1); CHLORIDE 109 mmol/L (98-107); CREATININE 0.59 mg/dL (0.55-1.02); SALICYLATE LEVEL 4.9 mg/dL (2.8-20.0)
--- NOTE | 2019-06-13 15:56 | NUR ---
SARWAT NICOLE SPOKE WITH PT BRIEFLY. PT UOB TO BATHROOM WITH ASSISTANCE.
[2019-06-13 15:59] LABS: ALKALINE PHOSPHATASE 61 U/L (45-117); BILIRUBIN,TOTAL 0.3 mg/dL (0.2-1.0)
[2019-06-13 16:16] LABS: AMPHETAMINE SCREEN, URINE Negative (Negative); BARBITURATE SCREEN, URINE Negative (Negative); BENZODIAZEPINE SCREEN, URINE Negative (Negative); CANNABINOID SCREEN, URINE Negative (Negative); COCAINE SCREEN, URINE Negative (Negative); METHADONE SCREEN, URINE Negative (Negative); OPIATE SCREEN, URINE Negative (Negative)
--- NOTE | 2019-06-13 17:52 | NUR ---
PROVIDED DINNER. PT MORE CONVERSIVE AND REMAINS COOPERATIVE
--- NOTE | 2019-06-13 19:06 | NUR ---
REPORT TO GINI REESE
--- NOTE | 2019-06-13 19:11 | NUR ---
REPORT OF PT FROM HUGH CERNA. PT RESTING IN [facility] AT THIS TIME; JERMAIN. SITTER OUTSIDE OF ROOM FOR DIRECT OBSERVATION OF PT AT THIS TIME.
--- NOTE | 2019-06-13 21:42 | NUR ---
PT ASLEEP IN [facility] AT THIS TIME; NADN. EQUAL BILATERAL RISE AND FALL OF CHEST NOTED. PT HAS SITTER OUTSIDE OF PT ROOM FOR DIRECT OBSERVATION OF PT.
--- NOTE | 2019-06-13 22:42 | NUR ---
PT ASLEEP IN [facility] AT THIS TIME; JERMAIN. SITTER OUTSIDE OF PT ROOM FOR DIRECT OBSERVATION OF PT AT THIS TIME.
--- NOTE | 2019-06-13 23:59 | NUR ---
PT AMBULATES WITH SLOW BUT STEADY GAIT TO [facility] TO VOID. PT RESTING IN [facility] AT THIS TIME, NADN. PT HAS SITTER OUTSIDE OF ROOM FOR DIRECT OBSERVATION OF PT.
--- NOTE | 2019-06-14 00:24 | NUR ---
pt asleep in [facility] at this time; jeannette. sitter outside of pt room for direct observation of pt.
--- NOTE | 2019-06-14 01:57 | NUR ---
pt asleep in [facility] at this time with sitter outside of room for direct observation of pt;
--- NOTE | 2019-06-14 02:10 | NUR ---
pt asleep in [facility]; jeannette. sitter outside of pt room for direct observation of pt.
--- NOTE | 2019-06-14 03:28 | NUR ---
Pt ambulates to [facility] with steady gait. pt back to [facility] at this time. pt has sitter outside of room for direct observation of pt.
--- NOTE | 2019-06-14 05:19 | NUR ---
PT AWAKENED FOR VS. VSS AT THIS TIME. SITTER OUTSIDE OF ROOM FOR DIRECT OBSERVATION OF PT.
--- NOTE | 2019-06-14 06:35 | NUR ---
eric from [facility] called and stated the pt is out of lifetime days, pt would have to self pay to go there. will notifry primary rn.
--- NOTE | 2019-06-14 06:50 | NUR ---
Patients packet was faxed to all psych facilities and conformation received.
--- NOTE | 2019-06-14 06:53 | NUR ---
REPORT OF PT TO HUGH PETE.
--- NOTE | 2019-06-14 09:25 | NUR ---
GOT PATIETN TYLENOL FOR HEADACHE. SHE IS NOW FEELING BETTER AND RESTING QUIETLY, ATE ALL OF BREAKFAST.
--- NOTE | 2019-06-14 10:23 | NUR ---
PATIENT RESTING QUIETLY BUT STATES SHE IS FEELING ANXIOUS, REQUESTING ATIVAN. WILL ASK MD IF THIS IS A POSSIBILITY FOR HER. VSS
[2019-06-14 10:59] VITALS: BP 145/78
== END ==
LOC: ED 15:50
DX: F10.221 Alcohol dependence with intoxication delirium (principal); R45.851 Suicidal ideations; G40.909 Epilepsy, unspecified, not intractable, without status epilepticus; F32.9 Major depressive disorder, single episode, unspecified; R94.31 Abnormal electrocardiogram [ECG] [EKG]; Y90.0 Blood alcohol level of less than 20 mg/100 ml
CPT/HCPCS: 36415; 80053; 80307; 85025; 93005; 99285

== ENCOUNTER 2019-07-14 19:11 | Emergency (ER) | payer MEDICARE ==
[~2019-07-14] VITALS: Ht 157.5 cm; Wt 40.9 kg
[~2019-07-14 19:11] MED LIST changes: -ACETAMINOPHEN 500 MG TABLET ONE; -ACETAMINOPHEN 500 MG TABLET PO ONE; -LORazepam 1MG TABLET ONE; -LORazepam 1MG TABLET PO ONE; +MULT-449 PO; -MULT1TAB60 PO
--- NOTE | 2019-07-14 19:31 | NUR ---
PT BIB EMS WITH C/O OF SI AT HOME, PT STATES " I DRINK A LOT AND THEN I WANT TO HURT MYSELF" "I WAS GOING TO TAKE ALL MY PILLS, BUT INSTEAD I CALLED". PT HAS HX OF SI/SA, REPORT HX OF OVERDOSE ON PRESCRIPTION MEDICATIONS, REPORTS SHE HAS NOT BEEN TAKING HER PRESCRIPTION PSYCH MEDICATIONS FOR [id number]. IN TRANSIT PT REPORTED CP, N/V SOB, AND ANXIETY. EMS PROVIDED [facility] ZOFRAN, 0.4MG NITRO TAB SL, 250ML NS, AND 324ASA. PT REPORTS CURRENT 7/10 CP WORSE WITH INCREASED ANXIETY. EKG DONE ON TRIAGE. PT CONNECTED TO ALL MONITORING, CALL LIGHT WITHIN REACH, BED IN LOW POSITION X2 RAILS RAISED.
[2019-07-14 19:59] LABS: BASOPHILS # (AUTO) 0.19 x10^3/uL (0-0.1); BASOPHILS % (AUTO) 4 % (0-1); EOSINOPHILS # (AUTO) 0.11 x10^3/uL (0-0.4); EOSINOPHILS % (AUTO) 2 % (1-7); LYMPHOCYTES # (AUTO) 2.68 x10^3/uL (1-3.4); LYMPHOCYTES % (AUTO) 48 % (22-44); MD NO; MEAN CORPUSCULAR HEMOGLOBIN 33.2 pg (27.0-34.8); MEAN CORPUSCULAR HGB CONC 33.5 g/dL (32.4-35.8); MEAN PLATELET VOLUME 7.2 fL (7.4-10.4); MONOCYTES # (AUTO) 0.69 x10^3/uL (0.2-0.8); MONOCYTES % (AUTO) 12 % (2-9); NEUTROPHILS # (AUTO) 1.92 x10^3/uL (1.8-6.8); NEUTROPHILS % (AUTO) 34 % (42-75); PLATELET COUNT 305 x10^3/uL (130-400); RED BLOOD COUNT 4.05 x10^6/uL (3.82-5.3); RED CELL DISTRIBUTION WIDTH 16.4 % (9.6-15.2)
[2019-07-14 20:12] LABS: ALANINE AMINOTRANSFERASE 65 U/L (12-78); ALBUMIN 3.3 g/dL (3.4-5.0); ANION GAP 12 mmol/L (5-15); CALCIUM 8.6 mg/dL (8.5-10.1); CHLORIDE 107 mmol/L (98-107); CREATININE 0.58 mg/dL (0.55-1.02); SALICYLATE LEVEL 6.9 mg/dL (2.8-20.0)
--- NOTE | 2019-07-14 20:16 | NUR ---
PT AMBULATED TO AND FROM BATHROOM WITH STEADY GAIT. PT AOX4. PT RESTING ON GURNEY WITH X2 RAILS RAISED. MONITORING REAPPLIED, CALL LIGHT WITHIN REACH.
[2019-07-14 20:17] LABS: ALKALINE PHOSPHATASE 64 U/L (45-117); BILIRUBIN,TOTAL 0.2 mg/dL (0.2-1.0); TOTAL PROTEIN 6.5 g/dL (6.4-8.2); TROPONIN I < 0.015 ng/mL (0.000-0.045)
[2019-07-14 20:35] LABS: AMPHETAMINE SCREEN, URINE Negative (Negative); BARBITURATE SCREEN, URINE Negative (Negative); BENZODIAZEPINE SCREEN, URINE Negative (Negative); CANNABINOID SCREEN, URINE Negative (Negative); COCAINE SCREEN, URINE Negative (Negative); METHADONE SCREEN, URINE Negative (Negative); OPIATE SCREEN, URINE Negative (Negative)
--- NOTE | 2019-07-14 21:22 | NUR ---
PT RESTING ON GURNEY WITH EYES CLOSED, RESPIRATIONS EVEN AND NONLABORED, CALL LIGHT WITHIN REACH, ALL SAFETY MEASURES IN PLACE.
--- NOTE | 2019-07-14 23:50 | NUR ---
PT UP TO BATHROOM WITH STEADY GAIT. PT RECONNECTED TO MONITORING, CALL LIGHT WITHIN REACH.
--- NOTE | 2019-07-15 00:33 | NUR ---
PT RESTING ON GURNEY WITH EYES CLOSED, RESPIRATIONS EVEN AND NONLABORED.
--- NOTE | 2019-07-15 01:23 | NUR ---
resting quietly, resp rate even and regular
[2019-07-15 01:51] VITALS: BP 143/76
--- NOTE | 2019-07-15 01:52 | NUR ---
PT PROVIDED WATER.
--- NOTE | 2019-07-15 02:16 | NUR ---
MT: TELEPSYCH PAGED AND MONITOR PLACED IN ROOM.
--- NOTE | 2019-07-15 03:28 | NUR ---
MT:T TELEPSYCH DOCTOR CALLED AND STATED PATIENT IS FIT FOR DISCHARGE.
== END 2019-07-15 04:24 | disposition home or self-care (01) ==
LOC: ED 20:57
DX: F20.0 Paranoid schizophrenia (principal); F10.220 Alcohol dependence with intoxication, uncomplicated; R45.851 Suicidal ideations; F32.9 Major depressive disorder, single episode, unspecified; F17.210 Nicotine dependence, cigarettes, uncomplicated; Y90.9 Presence of alcohol in blood, level not specified
CPT/HCPCS: 36415; 71045; 80053; 80307; 84484; 85025; 93005; 99285

== ENCOUNTER 2019-07-17 16:37 | Emergency (ER) | payer MEDICARE ==
[~2019-07-17] VITALS: Ht 157.5 cm; Wt 37.0 kg
[~2019-07-17 16:37] MED LIST changes: -MULT-449 PO; +MULT1TAB60 PO
--- NOTE | 2019-07-17 16:52 | NUR ---
MICKI PAVON FROM HOME. PT C/O SI, WITH PLAN BUT NO ATTEMPT. PT'S PLAN IS TO TAKE ALL HER MEDS AND DRINK ETOH. PT = Addendum: 07/17/19 at 1653 by [email or web address] PT +ETOH. 1 BAG BELONGINGS PLACED IN ED LOCKER. ROOM SECURE. PT IN DIRECT SIGHT OF SITTER. CABRERA IN FOR ASSESSMENT. OK TO PROVIDE MEAL TRAY. PT ATTEMPTED TO URINATE W/O SUCCESS.
--- NOTE | 2019-07-17 17:10 | NUR ---
PT DID NOT COME IN ON A LEGAL HOLD.
[2019-07-17 17:25] LABS: MEAN CORPUSCULAR HEMOGLOBIN 33.1 pg (27.0-34.8); MEAN CORPUSCULAR HGB CONC 32.9 g/dL (32.4-35.8); MEAN CORPUSCULAR VOLUME 100.6 fL (80-100); PLATELET COUNT 281 x10^3/uL (130-400); RED BLOOD COUNT 4.01 x10^6/uL (3.82-5.3)
[2019-07-17 17:32] LABS: ALANINE AMINOTRANSFERASE 143 U/L (12-78); ALBUMIN 3.3 g/dL (3.4-5.0); ANION GAP 9 mmol/L (5-15); CALCIUM 8.8 mg/dL (8.5-10.1); CHLORIDE 109 mmol/L (98-107); CREATININE 0.77 mg/dL (0.55-1.02); SALICYLATE LEVEL 4.2 mg/dL (2.8-20.0)
[2019-07-17 17:34] LABS: ALKALINE PHOSPHATASE 77 U/L (45-117); BILIRUBIN,TOTAL 0.3 mg/dL (0.2-1.0); TOTAL PROTEIN 6.7 g/dL (6.4-8.2)
--- NOTE | 2019-07-17 17:36 | NUR ---
PT UNABLE TO BLOW HARD ENOUGH FOR BREATHALYZER TEST. MD NOTIFIED AND WILL ORDER ETOH FROM [facility]RA[facility].
[2019-07-17 17:53] LABS: BASOPHILS # (AUTO) 0.07 x10^3/uL (0-0.1); BASOPHILS % (AUTO) 1 % (0-1); EOSINOPHILS # (AUTO) 0.09 x10^3/uL (0-0.4); EOSINOPHILS % (AUTO) 1 % (1-7); LYMPHOCYTES % (AUTO) 34 % (22-44); MD SCAN; MONOCYTES # (AUTO) 0.51 x10^3/uL (0.2-0.8); MONOCYTES % (AUTO) 7 % (2-9); NEUTROPHILS # (AUTO) 3.96 x10^3/uL (1.8-6.8); NEUTROPHILS % (AUTO) 56 % (42-75)
--- NOTE | 2019-07-17 18:09 | NUR ---
MEAL TRAY PROVIDED, SAFETY PRECAUTIONS IN PLACE.
[2019-07-17 18:17] LABS: AMPHETAMINE SCREEN, URINE Negative (Negative); BARBITURATE SCREEN, URINE Negative (Negative); BENZODIAZEPINE SCREEN, URINE Negative (Negative); CANNABINOID SCREEN, URINE Positive (Negative); COCAINE SCREEN, URINE Negative (Negative); METHADONE SCREEN, URINE Negative (Negative); OPIATE SCREEN, URINE Negative (Negative)
--- NOTE | 2019-07-17 19:10 | NUR ---
ETOH 0.245. TELEPSYCH AFTER PT VIDYA UP. PT RESTING COMFORTABLY ON GURNEY. NADN. PT IN DIRECT SIGHT OF SITTER.
--- NOTE | 2019-07-17 20:30 | NUR ---
PT SLEEPING ON SAGAR. JERMAIN. PT IN DIRECT SIGHT OF SITTER.
--- NOTE | 2019-07-17 20:44 | NUR ---
BREATHALYZER 0.13. MD NOTIFIED, WANTS LESS THAN 0.08.
--- NOTE | 2019-07-17 21:45 | NUR ---
PT SLEEPING ON SAGAR. JERMAIN. PT IN DIRECT SIGHT OF SITTER.
--- NOTE | 2019-07-17 22:11 | NUR ---
REPORT GIVEN TO KSENIA REESE.
--- NOTE | 2019-07-17 23:17 | NUR ---
TP rn: NORMA informed of pt on hold and will get to this rn on whether they will accept or not.
--- NOTE | 2019-07-17 23:28 | NUR ---
PROVIDER TO BEDSIDE FOR REASSESSMENT. REPEAT BREATHALIZER 0.009.
[2019-07-18 01:07] VITALS: BP 167/71
--- NOTE | 2019-07-18 01:15 | NUR ---
PT REPORTS SOME NAUSEA AND FEELING SHAKY. SPOKE WITH ATTENDING PHYSICIAN. WILL ORDER ZOFRAN AND ATIVAN.
[2019-07-18] MEDS ORDERED: LORazepam 1MG TABLET ONE (01:25)
[2019-07-18] MEDS ORDERED: ONDANSETRON ODT 4 MG ONE (01:25)
[2019-07-18] MEDS ORDERED: LORazepam 1MG TABLET PO ONE (01:30)
[2019-07-18] MEDS ORDERED: ONDANSETRON ODT 4 MG PO ONE (01:30)
--- NOTE | 2019-07-18 02:07 | NUR ---
SITTER OUTSIDE DOOR. PT RESTING. CALM AND COOPERATIVE WITH STAFF.
--- NOTE | 2019-07-18 02:20 | NUR ---
REPORT TO COOKIE REESE ON [facility]UST.
== END 2019-07-18 02:24 | disposition other institution (70) ==
LOC: ED 18:03
DX: F33.9 Major depressive disorder, recurrent, unspecified (principal); R45.851 Suicidal ideations; F10.129 Alcohol abuse with intoxication, unspecified; F20.9 Schizophrenia, unspecified; Y90.9 Presence of alcohol in blood, level not specified
CPT/HCPCS: 36415; 80053; 80307; 85025; 99284; Q0162

== ENCOUNTER 2019-07-18 01:44 | Inpatient (IN) | payer MEDICARE ==
[~2019-07-18] VITALS: Ht 154.9 cm; Wt 53.9 kg
[2019-07-18] MEDS ORDERED: DOCUSATE 100 MG CAPSULE PO PRN (02:00)
[2019-07-18] MEDS ORDERED: POLYETHYLENE GLYCOL 17 GM PACKET PO PRN (02:00)
[2019-07-18] MEDS ORDERED: ONDANSETRON ODT 4 MG PO PRN (02:00)
[2019-07-18] MEDS ORDERED: BISACODYL 10 MG SUPP PR PRN (02:00)
[2019-07-18 02:15] VITALS: BP_SYST 138; BP_SYST 160; BP_DIAS 75; BP_DIAS 82
[2019-07-18 03:48] VITALS: BP 160/75
[2019-07-18 07:24] VITALS: BP 159/80
[2019-07-18] MEDS: hydrOXyzine 50MG TABLET PO SCH (09:07)
[2019-07-18] MEDS: FLUOXETINE HCL 20 MG CAPSULE PO SCH (09:07)
[2019-07-18] MEDS: MULTIVITAMIN 1 TABLET PO SCH (09:07)
[2019-07-18] MEDS: ZIPRASIDONE 40MG CAPSULE PO SCH ×2 (09:07→20:21)
[2019-07-18] MEDS: ACAMPROSATE 333 MG TABLET.DR PO SCH ×3 (09:08→20:21)
[2019-07-18] MEDS: NICOTINE 14MG/24 HR PATCH.TD24 TD SCH (09:08)
[2019-07-18] MEDS: CHOLECALCIFEROL 1,000 UNIT TABLET PO SCH (09:14)
[2019-07-18 18:06] LABS: MICROSCOPIC INDICATED
[2019-07-18 19:15] VITALS: BP 122/82
[2019-07-18] MEDS: LORazepam 1MG TABLET PO PRN (20:21)
[2019-07-18] MEDS: ATORVASTATIN 40 MG TABLET PO SCH (20:21)
[2019-07-19 07:40] VITALS: BP 126/83
[2019-07-19] MEDS: ACETAMINOPHEN 325 MG TABLET PO PRN ×3 (10:00→20:32)
[2019-07-19] MEDS: hydrOXyzine 50MG TABLET PO SCH (10:07)
[2019-07-19] MEDS: ZIPRASIDONE 40MG CAPSULE PO SCH ×2 (10:08→20:32)
[2019-07-19] MEDS: ACAMPROSATE 333 MG TABLET.DR PO SCH ×3 (10:08→20:34)
[2019-07-19] MEDS: MULTIVITAMIN 1 TABLET PO SCH (10:08)
[2019-07-19] MEDS: NICOTINE 14MG/24 HR PATCH.TD24 TD SCH (10:09)
[2019-07-19] MEDS: CHOLECALCIFEROL 1,000 UNIT TABLET PO SCH (10:09)
[2019-07-19] MEDS: FLUOXETINE HCL 20 MG CAPSULE PO SCH (10:10)
[2019-07-19 19:20] VITALS: BP 129/82
[2019-07-19] MEDS: LORazepam 1MG TABLET PO PRN (20:32)
[2019-07-19] MEDS: ATORVASTATIN 40 MG TABLET PO SCH (20:32)
[2019-07-20 07:36] VITALS: BP 127/82
[2019-07-20] MEDS: ACAMPROSATE 333 MG TABLET.DR PO SCH ×3 (08:25→20:54)
[2019-07-20] MEDS: ZIPRASIDONE 40MG CAPSULE PO SCH ×2 (08:25→21:11)
[2019-07-20] MEDS: hydrOXyzine 50MG TABLET PO SCH (08:25)
[2019-07-20] MEDS: FLUOXETINE HCL 20 MG CAPSULE PO SCH (08:26)
[2019-07-20] MEDS: MULTIVITAMIN 1 TABLET PO SCH (08:26)
[2019-07-20] MEDS: CHOLECALCIFEROL 1,000 UNIT TABLET PO SCH (08:26)
[2019-07-20] MEDS: NICOTINE 14MG/24 HR PATCH.TD24 TD SCH (08:27)
[2019-07-20] MEDS: LORazepam 1MG TABLET PO PRN (13:37)
[2019-07-20 19:50] VITALS: BP 113/76
[2019-07-20] MEDS: ATORVASTATIN 40 MG TABLET PO SCH (20:54)
[2019-07-20] MEDS: ACETAMINOPHEN 325 MG TABLET PO PRN (20:54)
[2019-07-21 07:34] VITALS: BP 120/84
[2019-07-21] MEDS: ACAMPROSATE 333 MG TABLET.DR PO SCH ×3 (08:25→20:20)
[2019-07-21] MEDS: hydrOXyzine 50MG TABLET PO SCH (08:26)
[2019-07-21] MEDS: MULTIVITAMIN 1 TABLET PO SCH (08:26)
[2019-07-21] MEDS: ZIPRASIDONE 40MG CAPSULE PO SCH ×2 (08:27→20:20)
[2019-07-21] MEDS: CHOLECALCIFEROL 1,000 UNIT TABLET PO SCH (08:27)
[2019-07-21] MEDS: FLUOXETINE HCL 20 MG CAPSULE PO SCH (08:28)
[2019-07-21] MEDS: NICOTINE 14MG/24 HR PATCH.TD24 TD SCH (08:31)
[2019-07-21] MEDS: ACETAMINOPHEN 325 MG TABLET PO PRN ×2 (09:13→19:31)
[2019-07-21 19:50] VITALS: BP 133/84
[2019-07-21] MEDS: ATORVASTATIN 40 MG TABLET PO SCH (20:20)
[2019-07-22 07:00] VITALS: BP 127/82
[2019-07-22] MEDS: NICOTINE 14MG/24 HR PATCH.TD24 TD SCH (08:03)
[2019-07-22] MEDS: ZIPRASIDONE 40MG CAPSULE PO SCH ×2 (08:04→21:05)
[2019-07-22] MEDS: ACAMPROSATE 333 MG TABLET.DR PO SCH ×3 (08:04→21:05)
[2019-07-22] MEDS: MULTIVITAMIN 1 TABLET PO SCH (08:04)
[2019-07-22] MEDS: CHOLECALCIFEROL 1,000 UNIT TABLET PO SCH (08:04)
[2019-07-22] MEDS: hydrOXyzine 50MG TABLET PO SCH (08:04)
[2019-07-22] MEDS: FLUOXETINE HCL 20 MG CAPSULE PO SCH (08:05)
[2019-07-22] MEDS: LORazepam 1MG TABLET PO PRN (15:58)
[2019-07-22 19:09] VITALS: BP 104/68
[2019-07-22] MEDS: ATORVASTATIN 40 MG TABLET PO SCH (21:04)
[2019-07-23 07:41] VITALS: BP 101/67
[2019-07-23] MEDS: NICOTINE 14MG/24 HR PATCH.TD24 TD SCH (07:49)
[2019-07-23] MEDS: MULTIVITAMIN 1 TABLET PO SCH (07:50)
[2019-07-23] MEDS: hydrOXyzine 50MG TABLET PO SCH (07:50)
[2019-07-23] MEDS: FLUOXETINE HCL 20 MG CAPSULE PO SCH (07:50)
[2019-07-23] MEDS: ZIPRASIDONE 40MG CAPSULE PO SCH ×2 (07:50→20:13)
[2019-07-23] MEDS: ACAMPROSATE 333 MG TABLET.DR PO SCH ×3 (07:50→20:13)
[2019-07-23] MEDS: CHOLECALCIFEROL 1,000 UNIT TABLET PO SCH (07:51)
[2019-07-23] MEDS: LORazepam 1MG TABLET PO PRN (16:40)
[2019-07-23 19:13] VITALS: BP 131/81
[2019-07-23] MEDS: ATORVASTATIN 40 MG TABLET PO SCH (20:13)
[2019-07-24 07:29] VITALS: BP 108/70
[2019-07-24] MEDS: CHOLECALCIFEROL 1,000 UNIT TABLET PO SCH (08:11)
[2019-07-24] MEDS: FLUOXETINE HCL 20 MG CAPSULE PO SCH (08:11)
[2019-07-24] MEDS: MULTIVITAMIN 1 TABLET PO SCH (08:12)
[2019-07-24] MEDS: hydrOXyzine 50MG TABLET PO SCH (08:12)
[2019-07-24] MEDS: ZIPRASIDONE 40MG CAPSULE PO SCH ×2 (08:12→20:07)
[2019-07-24] MEDS: ACAMPROSATE 333 MG TABLET.DR PO SCH ×3 (08:13→20:07)
[2019-07-24] MEDS: NICOTINE 14MG/24 HR PATCH.TD24 TD SCH (08:14)
[2019-07-24] MEDS: LORazepam 1MG TABLET PO PRN (17:32)
[2019-07-24 19:22] VITALS: BP 121/73
[2019-07-24] MEDS: ATORVASTATIN 40 MG TABLET PO SCH (20:07)
[2019-07-25 07:31] VITALS: BP 108/71
[2019-07-25] MEDS: FLUOXETINE HCL 20 MG CAPSULE PO SCH (07:56)
[2019-07-25] MEDS: CHOLECALCIFEROL 1,000 UNIT TABLET PO SCH (07:56)
[2019-07-25] MEDS: hydrOXyzine 50MG TABLET PO SCH (07:57)
[2019-07-25] MEDS: MULTIVITAMIN 1 TABLET PO SCH (07:57)
[2019-07-25] MEDS: ZIPRASIDONE 40MG CAPSULE PO SCH ×2 (07:57→20:40)
[2019-07-25] MEDS: ACAMPROSATE 333 MG TABLET.DR PO SCH ×3 (07:58→20:41)
[2019-07-25] MEDS: NICOTINE 14MG/24 HR PATCH.TD24 TD SCH (08:03)
[2019-07-25] MEDS: ACETAMINOPHEN 325 MG TABLET PO PRN (08:18)
[2019-07-25 20:00] VITALS: BP 110/73
[2019-07-25] MEDS: ATORVASTATIN 40 MG TABLET PO SCH (20:41)
[2019-07-25] MEDS: LORazepam 1MG TABLET PO PRN (20:41)
[2019-07-26 07:15] VITALS: BP 103/70
[2019-07-26] MEDS: CHOLECALCIFEROL 1,000 UNIT TABLET PO SCH (09:34)
[2019-07-26] MEDS: ACAMPROSATE 333 MG TABLET.DR PO SCH ×3 (09:34→20:35)
[2019-07-26] MEDS: FLUOXETINE HCL 20 MG CAPSULE PO SCH (09:34)
[2019-07-26] MEDS: LORazepam 1MG TABLET PO PRN ×2 (09:35→20:35)
[2019-07-26] MEDS: hydrOXyzine 50MG TABLET PO SCH (09:35)
[2019-07-26] MEDS: MULTIVITAMIN 1 TABLET PO SCH (09:35)
[2019-07-26] MEDS: NICOTINE 14MG/24 HR PATCH.TD24 TD SCH (09:35)
[2019-07-26] MEDS: ZIPRASIDONE 40MG CAPSULE PO SCH ×2 (09:35→20:35)
[2019-07-26 19:15] VITALS: BP 113/75
[2019-07-26] MEDS: ATORVASTATIN 40 MG TABLET PO SCH (20:35)
[2019-07-27 07:05] VITALS: BP 104/66
[2019-07-27] MEDS: ACAMPROSATE 333 MG TABLET.DR PO SCH ×3 (08:06→21:00)
[2019-07-27] MEDS: CHOLECALCIFEROL 1,000 UNIT TABLET PO SCH (08:06)
[2019-07-27] MEDS: MULTIVITAMIN 1 TABLET PO SCH (08:06)
[2019-07-27] MEDS: FLUOXETINE HCL 20 MG CAPSULE PO SCH (08:06)
[2019-07-27] MEDS: hydrOXyzine 50MG TABLET PO SCH (08:06)
[2019-07-27] MEDS: ZIPRASIDONE 40MG CAPSULE PO SCH ×2 (08:07→20:16)
[2019-07-27] MEDS: NICOTINE 14MG/24 HR PATCH.TD24 TD SCH (08:09)
[2019-07-27 19:29] VITALS: BP 119/72
[2019-07-27] MEDS: ATORVASTATIN 40 MG TABLET PO SCH (20:16)
[2019-07-27] MEDS: LORazepam 1MG TABLET PO PRN (20:21)
[2019-07-28 07:22] VITALS: BP 108/66
[2019-07-28] MEDS: ACAMPROSATE 333 MG TABLET.DR PO SCH (08:25)
[2019-07-28] MEDS: FLUOXETINE HCL 20 MG CAPSULE PO SCH (08:25)
[2019-07-28] MEDS: MULTIVITAMIN 1 TABLET PO SCH (08:25)
[2019-07-28] MEDS: CHOLECALCIFEROL 1,000 UNIT TABLET PO SCH (08:25)
[2019-07-28] MEDS: NICOTINE 14MG/24 HR PATCH.TD24 TD SCH (08:25)
[2019-07-28] MEDS: hydrOXyzine 50MG TABLET PO SCH (08:26)
[2019-07-28] MEDS: ZIPRASIDONE 40MG CAPSULE PO SCH (08:26)
== END 2019-07-28 15:00 | disposition home or self-care (01) | DRG 885 ==
LOC: 3E 02:28
PROVIDERS: ADMIT Psychiatry & Neurology Psychosomatic Medicine; ATTEND Psychiatry & Neurology Psychosomatic Medicine
DX: F33.2 Major depressive disorder, recurrent severe without psychotic features (principal); F10.239 Alcohol dependence with withdrawal, unspecified; R45.851 Suicidal ideations; F10.229 Alcohol dependence with intoxication, unspecified; D75.89 Other specified diseases of blood and blood-forming organs; D64.9 Anemia, unspecified; F12.90 Cannabis use, unspecified, uncomplicated; F17.210 Nicotine dependence, cigarettes, uncomplicated; Z79.899 Other long term (current) drug therapy; Z59.0 Homelessness; Z88.0 Allergy status to penicillin; R74.0 Nonspecific elevation of levels of transaminase and lactic acid dehydrogenase [LDH]; Y90.9 Presence of alcohol in blood, level not specified
CPT/HCPCS: 81001; 87086; 93005

== ENCOUNTER 2019-08-04 11:29 | Emergency (ER) | payer MEDICARE ==
[~2019-08-04] VITALS: Ht 162.6 cm; Wt 55.0 kg
[2019-08-04 11:42] VITALS: BP 145/72
[2019-08-04] MEDS ORDERED: FLUO20CA19 PO (12:08)
--- NOTE | 2019-08-04 12:20 | NUR ---
THIS IS A 69 YO F BIB EMS W/ C/O SI. PT REPORTS SHE HAS A SUICIDE ATTEMPT ONCE A YEAR FOR THE PAST 15 YEARS. PT REPORTS EVERY YEAR SHE SAVES UP HER PILLS AND OVERDOSES. THIS IS HER CURRENT PLAN. PT REPORTS COMPLIANT W/ MEDS. PT STATES "CAN I GO TO THE PSYCH MEHTA?". PT INFORMED SHE NEEDS TO BE EVALUATED BY AN ED PHYSICIAN. PT AMBULATED TO THE W/ A STEADY GAIT. BELONGINGS REMOVED AND PLACED IN 1 BAG IN SAFETY LOCKER. PT IN GOWN, SITTER OUTSIDE ROOM. PT RESTING ON GURNEY AWAITING ED EVAL.
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
--- NOTE | 2019-08-04 12:51 | NUR ---
PT TRANSPORTED TO ROOM 3 FOR SAFETY. PROVIDED LUNCH TRAY. GARAGE DOORS DOWN, SITTER OUTSIDE ROOM. NADN. AWAITING ED EVAL.
--- NOTE | 2019-08-04 13:42 | NUR ---
LAB IN ROOM.
--- NOTE | 2019-08-04 13:47 | NUR ---
RAD IN ROOM.
--- NOTE | 2019-08-04 14:00 | NUR ---
MED REC DONE.
[2019-08-04 14:01] LABS: BASOPHILS # (AUTO) 0.06 x10^3/uL (0-0.1); BASOPHILS % (AUTO) 1 % (0-1); EOSINOPHILS # (AUTO) 0.13 x10^3/uL (0-0.4); EOSINOPHILS % (AUTO) 2 % (1-7); LYMPHOCYTES # (AUTO) 2.42 x10^3/uL (1-3.4); LYMPHOCYTES % (AUTO) 38 % (22-44); MD NO; MEAN CORPUSCULAR HEMOGLOBIN 33.4 pg (27.0-34.8); MEAN CORPUSCULAR HGB CONC 33.4 g/dL (32.4-35.8); MEAN CORPUSCULAR VOLUME 99.9 fL (80-100); MEAN PLATELET VOLUME 7.4 fL (7.4-10.4); MONOCYTES # (AUTO) 0.51 x10^3/uL (0.2-0.8); MONOCYTES % (AUTO) 8 % (2-9); NEUTROPHILS # (AUTO) 3.26 x10^3/uL (1.8-6.8); NEUTROPHILS % (AUTO) 51 % (42-75); PLATELET COUNT 366 x10^3/uL (130-400); RED BLOOD COUNT 3.96 x10^6/uL (3.82-5.3)
[2019-08-04 14:05] LABS: AMPHETAMINE SCREEN, URINE Negative (Negative); BARBITURATE SCREEN, URINE Negative (Negative); BENZODIAZEPINE SCREEN, URINE Negative (Negative); CANNABINOID SCREEN, URINE Negative (Negative); COCAINE SCREEN, URINE Negative (Negative); METHADONE SCREEN, URINE Negative (Negative); OPIATE SCREEN, URINE Negative (Negative)
[2019-08-04 14:13] LABS: ALBUMIN 3.2 g/dL (3.4-5.0); ANION GAP 13 mmol/L (5-15); CALCIUM 8.4 mg/dL (8.5-10.1); CHLORIDE 107 mmol/L (98-107); CREATININE 0.56 mg/dL (0.55-1.02); SALICYLATE LEVEL 3.3 mg/dL (2.8-20.0)
[2019-08-04 14:17] LABS: TROPONIN I < 0.015 ng/mL (0.000-0.045)
--- NOTE | 2019-08-04 14:37 | NUR ---
PT AMBULATED TO THE BR W/ A STEADY GAIT.
--- NOTE | 2019-08-04 15:06 | NUR ---
BREAK RN: PATIENT RESTING IN BED, RESPIRATIONS EVEN AND UNLABORED. SITTER AT DOOR, ROOM SECURED.
--- NOTE | 2019-08-04 15:19 | NUR ---
PT AMBULATED TO THE BR W/ A STEADY GAIT.
[2019-08-04] MEDS ORDERED: ACETAMINOPHEN 325 MG TABLET ONE (16:18)
--- NOTE | 2019-08-04 16:21 | NUR ---
PT C/O HEADACHE. MEDICATED PER EMAR.
[2019-08-04] MEDS ORDERED: ACETAMINOPHEN 325 MG TABLET PO ONE (16:30)
--- NOTE | 2019-08-04 17:41 | NUR ---
REPORT GIVEN TO LUIGI REESE. PT IS READY FOR TRANSPORT.
== END 2019-08-04 17:43 ==
LOC: ED 13:29
DX: R45.851 Suicidal ideations (principal); R07.89 Other chest pain; F20.9 Schizophrenia, unspecified; R94.31 Abnormal electrocardiogram [ECG] [EKG]
CPT/HCPCS: 36415; 71045; 80048; 80307; 82040; 84443; 84484; 85025; 93005; 99285

== ENCOUNTER 2019-08-26 05:31 | Emergency (ER) | payer MEDICARE ==
[~2019-08-26] VITALS: Ht 157.5 cm; Wt 39.0 kg
[~2019-08-26 05:31] MED LIST changes: +FLUO20CA19 PO; +MULT-449 PO; -MULT1TAB60 PO
--- NOTE | 2019-08-26 05:37 | NUR ---
Pt presents to ed c/o glf s/t etoh and a lac to R eye noted. States drink a pint of etoh tonight and on average drinks 2 pints a day. -loc. Remembers whole event. Slurred speech noted, but gross neuro otherwise intact. Denies taking blood thinner. All monitoring applied. Vss. Call light within reach. Md student at bedside for assessment.
[2019-08-26] MEDS ORDERED: LIDOCAINE 1%-EPI 1:100K, 20ML ONE (05:55)
[2019-08-26] MEDS ORDERED: ONDANSETRON ODT 4 MG ONE (05:56)
[2019-08-26] MEDS ORDERED: ACETAMINOPHEN 500 MG TABLET ONE (05:56)
[2019-08-26] MEDS ORDERED: DIPH,PERTUSS(ACELL),TET VAC/PF 0.5 ML IM-VACC ONE (06:00)
[2019-08-26] MEDS ORDERED: LIDOCAINE 1%-EPI 1:100K, 20ML SQ ONE (06:00)
[2019-08-26] MEDS ORDERED: ONDANSETRON ODT 4 MG PO ONE (06:00)
[2019-08-26] MEDS ORDERED: ACETAMINOPHEN 500 MG TABLET PO ONE (06:00)
--- NOTE | 2019-08-26 06:00 | NUR ---
Pt refusing adacel. "I have had that before. I dont want that." This rn explained the need for adacel. Pt still adamently refusing. Pt refusing to put the c-collar on. "that is really uncomfortable. I am in enough pain as it is." informed.
[2019-08-26] MEDS ORDERED: L.E.T SOLUTION TP ONE ×2 (06:02→06:30)
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
--- NOTE | 2019-08-26 06:09 | NUR ---
Lido pulled and given to ERP. Sutures set up and awaiting ct.
--- NOTE | 2019-08-26 06:16 | NUR ---
PT TO CT.
--- NOTE | 2019-08-26 06:43 | NUR ---
Report from Nabeel REESE. Pt in CT currently.
[2019-08-26 07:00] VITALS: BP 101/54
--- NOTE | 2019-08-26 07:00 | NUR ---
Pt back from CT, resting in bed, JERMAIN. POC discussed with pt.
--- NOTE | 2019-08-26 07:35 | NUR ---
resident at bedside to repair lac.
--- NOTE | 2019-08-26 08:19 | NUR ---
Pt's lac repaired by MD resident. Pt fully dressed, ambulatory to nurse's station with steady gait, states she wants to leave. Pt encouraged to wait in her room and this RN will bring dc paperwork as soon as it is available. Pt insists that she would like to leave, does not want to wait for paperwork. Pt A&O x4, declines bus pass offered. Pt verbalizes understanding that she needs to have her sutures removed on .
== END 2019-08-26 08:25 | disposition home or self-care (01) ==
LOC: ED 05:58
DX: S01.81XA Laceration without foreign body of other part of head, initial encounter (principal); S40.211A Abrasion of right shoulder, initial encounter; S09.90XA Unspecified injury of head, initial encounter; M54.2 Cervicalgia; F10.120 Alcohol abuse with intoxication, uncomplicated; F17.210 Nicotine dependence, cigarettes, uncomplicated; W18.30XA Fall on same level, unspecified, initial encounter; Y93.89 Activity, other specified; Y92.410 Unspecified street and highway as the place of occurrence of the external cause; Y99.8 Other external cause status; Y90.9 Presence of alcohol in blood, level not specified
CPT/HCPCS: 12013; 70450; 72125; 73030; 99285; Q0162; 12002

== ENCOUNTER 2019-08-30 14:21 | Emergency (ER) | payer MEDICARE ==
[~2019-08-30] VITALS: Ht 165.1 cm; Wt 60.0 kg
[2019-08-30 14:37] VITALS: BP 126/79
[2019-08-30 15:19] LABS: BASOPHILS # (AUTO) 0.04 x10^3/uL (0-0.1); BASOPHILS % (AUTO) 1 % (0-1); EOSINOPHILS # (AUTO) 0.04 x10^3/uL (0-0.4); EOSINOPHILS % (AUTO) 1 % (1-7); LYMPHOCYTES # (AUTO) 2.67 x10^3/uL (1-3.4); LYMPHOCYTES % (AUTO) 44 % (22-44); MD NO; MEAN CORPUSCULAR HGB CONC 33.3 g/dL (32.4-35.8); MEAN CORPUSCULAR VOLUME 99.2 fL (80-100); MEAN PLATELET VOLUME 6.3 fL (7.4-10.4); MONOCYTES # (AUTO) 0.44 x10^3/uL (0.2-0.8); MONOCYTES % (AUTO) 7 % (2-9); NEUTROPHILS # (AUTO) 2.93 x10^3/uL (1.8-6.8); NEUTROPHILS % (AUTO) 48 % (42-75); PLATELET COUNT 408 x10^3/uL (130-400); RED BLOOD COUNT 3.93 x10^6/uL (3.82-5.3); RED CELL DISTRIBUTION WIDTH 15.6 % (9.6-15.2)
[2019-08-30 15:27] LABS: ALANINE AMINOTRANSFERASE 35 U/L (12-78); ANION GAP 6 mmol/L (5-15); CHLORIDE 110 mmol/L (98-107); CREATININE 0.53 mg/dL (0.55-1.02)
[2019-08-30 15:36] LABS: ALKALINE PHOSPHATASE 88 U/L (45-117); BILIRUBIN,TOTAL 0.3 mg/dL (0.2-1.0); SALICYLATE LEVEL 3.2 mg/dL (2.8-20.0); TOTAL PROTEIN 6.5 g/dL (6.4-8.2)
[2019-08-30] MEDS ORDERED: POTASSIUM CHLORIDE 20 MEQ TAB.ER.PRT ONE (16:08)
[2019-08-30] MEDS ORDERED: POTASSIUM CHLORIDE 20 MEQ TAB.ER.PRT PO ONE (16:30)
[2019-08-30] MEDS ORDERED: ONDANSETRON ODT 4 MG ONE (16:48)
--- NOTE | 2019-08-30 16:53 | NUR ---
ASSISTED PATIENT TO BEDSIDE COMMODE FOR UA SAMPLE. PT UNABLE TO VOID AT THIS TIME. LARGE WATER AND JUICE PROVIDED. PT C/O NAUSEA. DR. RM NOTIFIED. POOJA CORBETT ORDERED AND GIVEN.
[2019-08-30] MEDS ORDERED: ONDANSETRON ODT 4 MG PO ONE (17:00)
[2019-08-30] MEDS ORDERED: DOCUSATE 100 MG CAPSULE PO PRN (17:30)
[2019-08-30] MEDS ORDERED: ACETAMINOPHEN 325 MG TABLET PO PRN (17:30)
[2019-08-30] MEDS ORDERED: POLYETHYLENE GLYCOL 17 GM PACKET PO PRN (17:30)
--- NOTE | 2019-08-30 18:19 | NUR ---
VALENCIAAR TELEPHONE HAND-OFF REPORT TO HUGH GARY [facility].
== END 2019-08-30 18:43 ==
LOC: ED 16:57
DX: S16.1XXA Strain of muscle, fascia and tendon at neck level, initial encounter (principal); S09.90XA Unspecified injury of head, initial encounter; F10.120 Alcohol abuse with intoxication, uncomplicated; R11.2 Nausea with vomiting, unspecified; R62.7 Adult failure to thrive; R94.31 Abnormal electrocardiogram [ECG] [EKG]; Z68.22 Body mass index [BMI] 22.0-22.9, adult; W19.XXXA Unspecified fall, initial encounter; Y93.73 Activity, racquet and hand sports; Y92.89 Other specified places as the place of occurrence of the external cause; Y99.8 Other external cause status
CPT/HCPCS: 36415; 70450; 70486; 72125; 80053; 80307; 83735; 84443; 85025; 93005; 99285; Q0162

== ENCOUNTER 2019-09-11 12:51 | Emergency (ER) | payer MEDICARE ==
[~2019-09-11] VITALS: Ht 157.5 cm; Wt 38.0 kg
[2019-09-11] MEDS ORDERED: HYDROcodone/APAP 5/325 TABLET PO ONE (13:30)
[2019-09-11] MEDS ORDERED: SODIUM CHLORIDE FLUSH 10ML SYR IVF ONE (13:30)
[2019-09-11 14:02] LABS: BASOPHILS # (AUTO) 0.03 x10^3/uL (0-0.1); BASOPHILS % (AUTO) 0 % (0-1); EOSINOPHILS # (AUTO) 0.01 x10^3/uL (0-0.4); EOSINOPHILS % (AUTO) 0 % (1-7); LYMPHOCYTES % (AUTO) 15 % (22-44); MD NO; MEAN CORPUSCULAR HGB CONC 33.5 g/dL (32.4-35.8); MEAN CORPUSCULAR VOLUME 98.6 fL (80-100); MONOCYTES # (AUTO) 1.29 x10^3/uL (0.2-0.8); MONOCYTES % (AUTO) 9 % (2-9); NEUTROPHILS # (AUTO) 10.91 x10^3/uL (1.8-6.8); NEUTROPHILS % (AUTO) 76 % (42-75); PLATELET COUNT 451 x10^3/uL (130-400); RED BLOOD COUNT 4.22 x10^6/uL (3.82-5.3); RED CELL DISTRIBUTION WIDTH 15.2 % (9.6-15.2)
[2019-09-11 14:11] LABS: ALBUMIN 3.4 g/dL (3.4-5.0); ANION GAP 15 mmol/L (5-15); CALCIUM 8.6 mg/dL (8.5-10.1); CHLORIDE 107 mmol/L (98-107)
[2019-09-11 14:16] LABS: ALANINE AMINOTRANSFERASE 36 U/L (12-78); ALKALINE PHOSPHATASE 118 U/L (45-117); BILIRUBIN,TOTAL 0.3 mg/dL (0.2-1.0); CREATININE 0.81 mg/dL (0.55-1.02); TROPONIN I < 0.015 ng/mL (0.000-0.045)
--- NOTE | 2019-09-11 14:43 | NUR ---
ALL RESULTS ARE BACK AT THIS TIME. CHART UP FOR RECHECK.
[2019-09-11 15:34] VITALS: BP 179/95
--- NOTE | 2019-09-11 15:35 | NUR ---
PT PLACED ON BED GONZALES. JERMAIN.
--- NOTE | 2019-09-11 16:07 | NUR ---
SHOULDER IMMOBILIZER PLACED BY TECHS. TECHS AMBULATED PT TO RESTROOM WITH STEADY GAIT. ALL RESULTS ARE BACK AT THIS TIME. CHART UP FOR RECHECK.
== END 2019-09-11 16:42 | disposition home or self-care (01) ==
LOC: ED 14:05
DX: S42.212A Unspecified displaced fracture of surgical neck of left humerus, initial encounter for closed fracture (principal); F10.220 Alcohol dependence with intoxication, uncomplicated; R51 Headache; M25.512 Pain in left shoulder; R94.31 Abnormal electrocardiogram [ECG] [EKG]; W01.0XXA Fall on same level from slipping, tripping and stumbling without subsequent striking against object, initial encounter; Y93.89 Activity, other specified; Y92.009 Unspecified place in unspecified non-institutional (private) residence as the place of occurrence of the external cause; Y99.8 Other external cause status; Y90.9 Presence of alcohol in blood, level not specified
CPT/HCPCS: 36415; 70450; 71045; 72125; 80053; 80307; 83880; 84484; 85025; 93005; 99285

== ENCOUNTER 2019-09-12 11:13 | Emergency (ER) | payer MEDICARE ==
[~2019-09-12] VITALS: Ht 157.5 cm; Wt 68.2 kg
[2019-09-12 12:21] LABS: BASOPHILS # (AUTO) 0.13 x10^3/uL (0-0.1); BASOPHILS % (AUTO) 1 % (0-1); EOSINOPHILS % (AUTO) 0 % (1-7); LYMPHOCYTES # (AUTO) 2.34 x10^3/uL (1-3.4); LYMPHOCYTES % (AUTO) 19 % (22-44); MD NO; MEAN CORPUSCULAR HGB CONC 33.9 g/dL (32.4-35.8); MEAN CORPUSCULAR VOLUME 97.5 fL (80-100); MEAN PLATELET VOLUME 6.9 fL (7.4-10.4); MONOCYTES # (AUTO) 1.32 x10^3/uL (0.2-0.8); MONOCYTES % (AUTO) 11 % (2-9); NEUTROPHILS # (AUTO) 8.85 x10^3/uL (1.8-6.8); NEUTROPHILS % (AUTO) 70 % (42-75); PLATELET COUNT 425 x10^3/uL (130-400); RED BLOOD COUNT 3.71 x10^6/uL (3.82-5.3); RED CELL DISTRIBUTION WIDTH 14.7 % (9.6-15.2)
[2019-09-12 12:42] LABS: ANION GAP 16 mmol/L (5-15); CALCIUM 8.7 mg/dL (8.5-10.1); CHLORIDE 99 mmol/L (98-107); CREATININE 0.55 mg/dL (0.55-1.02)
[2019-09-12 12:45] LABS: SALICYLATE LEVEL < 1.7 mg/dL (2.8-20.0)
--- NOTE | 2019-09-12 13:12 | NUR ---
PT ASSISTED TO BR FOR UA. PT UNABLE TO PROVIDE UA. WILL SC.
[2019-09-12] MEDS ORDERED: POTASSIUM CHLORIDE 20 MEQ TAB.ER.PRT ONE (13:28)
[2019-09-12] MEDS ORDERED: POTASSIUM CHLORIDE 20 MEQ TAB.ER.PRT PO ONE (13:30)
--- NOTE | 2019-09-12 13:40 | NUR ---
THIS TECH ASSISTED WITH STRAIGHT CATH
[2019-09-12 14:04] LABS: AMPHETAMINE SCREEN, URINE Negative (Negative); BARBITURATE SCREEN, URINE Negative (Negative); BENZODIAZEPINE SCREEN, URINE Negative (Negative); CANNABINOID SCREEN, URINE Negative (Negative); COCAINE SCREEN, URINE Negative (Negative); METHADONE SCREEN, URINE Negative (Negative); OPIATE SCREEN, URINE Negative (Negative)
--- NOTE | 2019-09-12 14:32 | NUR ---
Pt placed on bedpan, scant urine provided.
[2019-09-12] MEDS ORDERED: IBUPROFEN 600 MG TABLET ONE (15:54)
[2019-09-12 15:55] VITALS: BP 121/62
[2019-09-12] MEDS ORDERED: IBUPROFEN 200 MG TABLET PO ONE (17:00)
== END 2019-09-12 16:13 | disposition home or self-care (01) ==
LOC: ED 11:25
DX: R45.851 Suicidal ideations (principal); F10.220 Alcohol dependence with intoxication, uncomplicated; G40.909 Epilepsy, unspecified, not intractable, without status epilepticus; Y90.9 Presence of alcohol in blood, level not specified
CPT/HCPCS: 36415; 80048; 80307; 82040; 85025; 99284

== ENCOUNTER 2019-09-14 16:11 | Emergency (ER) | payer MEDICARE ==
[~2019-09-14] VITALS: Ht 154.9 cm; Wt 60.0 kg
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
[2019-09-14] MEDS ORDERED: ACETAMINOPHEN 325 MG TABLET ONE (16:54)
[2019-09-14 17:34] LABS: AMPHETAMINE SCREEN, URINE Negative (Negative); BARBITURATE SCREEN, URINE Negative (Negative); BENZODIAZEPINE SCREEN, URINE Negative (Negative); CANNABINOID SCREEN, URINE Negative (Negative); COCAINE SCREEN, URINE Negative (Negative); METHADONE SCREEN, URINE Negative (Negative); OPIATE SCREEN, URINE Negative (Negative)
[2019-09-14 17:37] LABS: BASOPHILS # (AUTO) 0.02 x10^3/uL (0-0.1); BASOPHILS % (AUTO) 0 % (0-1); EOSINOPHILS # (AUTO) 0.03 x10^3/uL (0-0.4); EOSINOPHILS % (AUTO) 0 % (1-7); LYMPHOCYTES # (AUTO) 2.31 x10^3/uL (1-3.4); LYMPHOCYTES % (AUTO) 26 % (22-44); MEAN CORPUSCULAR HEMOGLOBIN 32.5 pg (27.0-34.8); MEAN PLATELET VOLUME 7.3 fL (7.4-10.4); MONOCYTES # (AUTO) 0.69 x10^3/uL (0.2-0.8); MONOCYTES % (AUTO) 8 % (2-9); NEUTROPHILS # (AUTO) 5.98 x10^3/uL (1.8-6.8); NEUTROPHILS % (AUTO) 66 % (42-75); PLATELET COUNT 401 x10^3/uL (130-400); RED BLOOD COUNT 3.49 x10^6/uL (3.82-5.3); RED CELL DISTRIBUTION WIDTH 14.9 % (9.6-15.2)
[2019-09-14 17:38] LABS: MD NO
[2019-09-14 17:40] LABS: ALBUMIN 2.9 g/dL (3.4-5.0); ANION GAP 13 mmol/L (5-15); CALCIUM 8.7 mg/dL (8.5-10.1); CHLORIDE 105 mmol/L (98-107); CREATININE 0.74 mg/dL (0.55-1.02); SALICYLATE LEVEL 2.2 mg/dL (2.8-20.0)
[2019-09-14] MEDS ORDERED: ACETAMINOPHEN 325 MG TABLET PO ONE (18:00)
--- NOTE | 2019-09-14 18:07 | NUR ---
MEAL TRAY PROVIDED
--- NOTE | 2019-09-14 18:23 | NUR ---
REPORT RECIEVED FROM MOE REESE. PT TO SECURE RM AT THIS TIME, SITTER IN PLACE
[2019-09-14] MEDS ORDERED: HEPARIN 25,000 UNITS/250ML PMX 250 ML ONE (18:32)
[2019-09-14] MEDS ORDERED: HEPARIN 5,000 UNITS/ML, 1ML ONE (18:32)
--- NOTE | 2019-09-14 19:00 | NUR ---
REPORT RC'VD FROM DOMINGO REESE. PT RESTING IN BED, NO S/S OF DISTRESS AT THIS TIME.
--- NOTE | 2019-09-14 20:59 | NUR ---
WATER PROVIDED TO PT. NO OTHER NEEDS AT THIS TIME. SITTER OUTSIDE ROOM AT ALL TIMES AND ASSISTING WITH NEEDS.
--- NOTE | 2019-09-14 21:03 | NUR ---
[facility] April [facility] have no beds available. Therefore packet to be faxed out to other facilities.
--- NOTE | 2019-09-14 21:05 | NUR ---
THROUGHPUT RN: PACKET FAXED TO [facility], [facility], [facility], [facility], AND [facility].
--- NOTE | 2019-09-14 21:26 | NUR ---
THROUGHPUT RN: CALL FROM [facility] PT HAS NO LIFETIME DAYS LEFT ON INSURANCE COVERAGE, CAN ONLY ACCEPT SELF PAY.
--- NOTE | 2019-09-14 22:49 | NUR ---
PT AMBULATED TO BR WITHOUT DIFFICULTY. L SHOULDER IMMOBILIZER IN PLACE.
--- NOTE | 2019-09-14 23:03 | NUR ---
REPORT FROM EL REESE.
--- NOTE | 2019-09-15 01:00 | NUR ---
Break RN: Patient sleeping in [facility]. Respirations even and unlabored. Room secure, belongings in locked cabinet, sitter outside.
--- NOTE | 2019-09-15 01:26 | NUR ---
PT C/O SHOULDER PAIN REQUESTING TYLENOL. REPORTED TO ERP FOR ORDER.
[2019-09-15] MEDS ORDERED: ACETAMINOPHEN 325 MG TABLET ONE (01:29)
[2019-09-15] MEDS ORDERED: ACETAMINOPHEN 325 MG TABLET PO ONE (01:30)
--- NOTE | 2019-09-15 01:33 | NUR ---
PT MEDICATED PER MAR, OFFERED HOSPITAL BED BUT PT DECLINES AT THIS TIME.
--- NOTE | 2019-09-15 02:50 | NUR ---
PT UNABLE TO SLEEP R/T LEFT SHOULDER PAIN, REPORTED TO [facility] FOR PAIN MED ORDER.
[2019-09-15] MEDS ORDERED: HYDROcodone/APAP 5/325 TABLET ONE ×5 (02:52→23:57)
[2019-09-15] MEDS ORDERED: HYDROcodone/APAP 5/325 TABLET PO PRN ×2 (03:00→03:30)
--- NOTE | 2019-09-15 03:06 | NUR ---
PROVIDED HOSPITAL BED FOR PT'S COMFORT.
--- NOTE | 2019-09-15 04:10 | NUR ---
PT SLEEPING IN NAD, SITTER CONTINUES TO WATCH FROM OUTSIDE OF ROOM FOR SAFETY.
--- NOTE | 2019-09-15 05:26 | NUR ---
PT SLEEPING IN NAD, EVEN AND UNLABORED RESPIRATIONS. SITTER CONTINUES TO WATCH FOR SAFETY.
--- NOTE | 2019-09-15 06:51 | NUR ---
REPORT GIVEN TO KINGSTON REESE.
--- NOTE | 2019-09-15 06:52 | NUR ---
REPORT FROM MARIAJOSE
--- NOTE | 2019-09-15 07:21 | NUR ---
MEDICATED FOR SHOULDER PAIN, PT STATES " I AM SUICIDAL AND WANT TO GO TO [facility]" MEAL TRAY ORDERED. MEGHAN PRESENT
[2019-09-15] MEDS ORDERED: HYDROcodone/APAP 5/325 TABLET PO ONE ×2 (07:30→15:00)
--- NOTE | 2019-09-15 08:23 | NUR ---
GIVEN MEAL TRAY. SITTER PRESENT
--- NOTE | 2019-09-15 09:30 | NUR ---
PT RESTING, SITTER PRESENT
--- NOTE | 2019-09-15 10:30 | NUR ---
PT RESTING, SITTER PRESENT
--- NOTE | 2019-09-15 11:39 | NUR ---
DISCUSSED W PROVIDER PAIN MANAGEMENT, NORCO Q6 HRS. PT GIVEN ICE BAG AND REPOSITIONED
[2019-09-15] MEDS ORDERED: FLUOXETINE HCL 20 MG CAPSULE ONE (12:24)
[2019-09-15] MEDS: FLUOXETINE HCL 20 MG CAPSULE PO SCH (12:30)
--- NOTE | 2019-09-15 12:33 | NUR ---
GIVEN MEAL TRAY. PT REQUESTING PAIN MEDS. PT REFUSING MEAL AT THIS TIME
--- NOTE | 2019-09-15 12:38 | NUR ---
THROUGHPUT RN: SPOKE W/ SHANNON FROM [facility]. PT IS 13TH ON THEIR LIST.
--- NOTE | 2019-09-15 13:57 | NUR ---
PT AMBULATED TO BATHROOM W STEADY GAIT. SITTER PRESENT
--- NOTE | 2019-09-15 14:46 | NUR ---
PT AMBULATED TO BATHROOM W SITTER PRESENT
--- NOTE | 2019-09-15 15:30 | NUR ---
PT GIVEN COFFEE AND CRACKERS. TYRONTER PRESENT
--- NOTE | 2019-09-15 16:30 | NUR ---
PT AMBULATED TO BATHROOM. SITTER ASSISTED
[2019-09-15] MEDS: HYDROcodone/APAP 5/325 TABLET PO PRN (17:57)
--- NOTE | 2019-09-15 17:58 | NUR ---
MEDICATED PER ORDERS FOR PAIN. MEGHAN ARROYO
--- NOTE | 2019-09-15 18:26 | NUR ---
PT REFUSING MEAL TRAY
--- NOTE | 2019-09-15 18:42 | NUR ---
GAVE PT PEACHES FOR DINNER, PT STATES SHE DOESNT EAT ALOT
--- NOTE | 2019-09-15 18:44 | NUR ---
REPORT TO MOHIT
[2019-09-15] MEDS ORDERED: ZIPRASIDONE 20MG CAPSULE ONE (20:02)
[2019-09-15] MEDS: ZIPRASIDONE 40MG CAPSULE PO SCH (20:12)
--- NOTE | 2019-09-15 20:12 | NUR ---
PT MEDICATED PER APR, PROVIDED WITH SANDWICH AND MILK REQUESTED, SITTER REMAINS IN HALLWAY
--- NOTE | 2019-09-15 21:08 | NUR ---
PT RESTING ON HOSPITAL BED EYES CLOSED NO NEEDS AT THIS TIME SITTER REMAINS IN FUENTES
--- NOTE | 2019-09-15 22:20 | NUR ---
PT RESTING ON HOSPITAL BED SITTER REMAINS IN SIGHT
--- NOTE | 2019-09-15 23:10 | NUR ---
PT SLEEPING ON HOSPTIAL BED JERMAIN FUENTES
--- NOTE | 2019-09-16 | NUR ---
PT MEDICATED PER APR FOR PAIN. PT AMB TO RESTROOM STEADY GAIT NO ASSIST REQ. SITTER REMAINS IN FUENTES FOR SAFETY
--- NOTE | 2019-09-16 01:23 | NUR ---
PT IS SLEEPING ON HOSPITAL BED RESP EVEN AND UNLABORED. SITTER REMAINS IN FUENTES
--- NOTE | 2019-09-16 02:46 | NUR ---
PT CONTINUES TO SLEEP ON HOSP BED RESP EVEN AND UNLABORED SITTER IN FUENTES
--- NOTE | 2019-09-16 03:45 | NUR ---
PT REMAINS ASLEEP SITTER IN SIGHT FOR SAFETY
--- NOTE | 2019-09-16 04:57 | NUR ---
PT ASLEEP RESP EVEN AND UNLABORED MEGHAN ALY IN HALLWAY
--- NOTE | 2019-09-16 05:30 | NUR ---
PT RESTING ON HOSP BED SITTER IN SIGHT
[2019-09-16] MEDS ORDERED: HYDROcodone/APAP 5/325 TABLET ONE ×3 (06:17→18:54)
[2019-09-16] MEDS: HYDROcodone/APAP 5/325 TABLET PO PRN ×4 (06:19→19:02)
--- NOTE | 2019-09-16 06:20 | NUR ---
PT MEDICATED PER NARINDER ALY PROVIDED JUICE REQ
[2019-09-16] MEDS ORDERED: FLUOXETINE HCL 20 MG CAPSULE ONE (07:13)
[2019-09-16] MEDS ORDERED: ZIPRASIDONE 20MG CAPSULE ONE ×2 (07:13→20:21)
[2019-09-16] MEDS: FLUOXETINE HCL 20 MG CAPSULE PO SCH (07:23)
[2019-09-16] MEDS: ZIPRASIDONE 40MG CAPSULE PO SCH ×2 (07:23→20:28)
--- NOTE | 2019-09-16 07:25 | NUR ---
PT MEDICATED PER APR, PT COOPERATIVE THIS AM, REQUESTING COFFEE AND BREAKFAST. PT GIVEN COFFEE PER REQUEST WAITING ON TRAY AT THIS TIME, VSS, NAD
--- NOTE | 2019-09-16 10:00 | NUR ---
PT REQUESTING PAIN MEDICATION, PT UPDATED ON WHEN PAIN MEDICATION IS AVAILABLE, PLAN TO MEDICATE WHEN DUE, PT AWARE OF TIME. NO OTHER NEEDS
--- NOTE | 2019-09-16 11:49 | NUR ---
Laurie peguero in ED - 09/16/19 at 1152 by KENAN PT NOW WILLING TO TAKE AM MEDICATION, PT MEDICATED PER APR.
--- NOTE | 2019-09-16 12:46 | NUR ---
PT MEDICATED FOR PAIN PER MAR, MEAL TRAY PROVIDED. ICE PACK REFILLED FOR L SHOULDER BY IRONWORKER HELPER SHOP, NO OTHER NEEDS EXPRESSED, SI PRECAUTIONS REMAIN IN PLACE
--- NOTE | 2019-09-16 17:34 | NUR ---
PT GIVEN MEAL TRAY, NAD NOTED
--- NOTE | 2019-09-16 18:45 | NUR ---
BS report from barbara REESE. Pt care transferred at this time.
--- NOTE | 2019-09-16 19:15 | NUR ---
Pt resting in hospital bed, sitting up, appears comfortable watching tv. Pt skin color WNL warm and dry, L arm in immobilizer sling. Pt medicated per MAR for pain. pt VSS, NAD, sitter in line of sight, denies additional needs at this time. WCTM
--- NOTE | 2019-09-16 20:34 | NUR ---
PT MEDICATED PER APR. RESTING IN HOSPITAL BED UNDER BLANKETS, APPEARS COMFORTABLE, NO CHANGE IN CONDITION, SITTER IN LINE OF SIGHT. WCTM.
--- NOTE | 2019-09-16 21:33 | NUR ---
pt resting in hospital bed, appears comfortable, NAD, no change in condition, sitter in line of sight. WCTM.
--- NOTE | 2019-09-16 22:20 | NUR ---
PREVIOUS NOTE ON WRONG PT. PT SITTING UP IN HOSPITAL BED, GIVEN WATER FOR COMFORT, PT NAD, RESP EVEN AND UNLABORED SITTER IN LINE OF SIGHT, NO CHANGE IN CONDITION, WCTM.
--- NOTE | 2019-09-16 22:20 | NUR ---
Note sudhir in ED - 09/16/19 at 2220 by BARON PT RESTING IN GURNEY, REQUESTING MORE WATER, NAD, VSS, APPEARS COMFORTABLE, WCTM. WAITING FOR DC PAPERWORK.
--- NOTE | 2019-09-16 23:19 | NUR ---
PT RESTING IN HOSPITAL BED, EYES CLOSED, APPEARS COMFORTABLE, RESP WNL, SITTER IN LINE OF SIGHT. WCTM.
--- NOTE | 2019-09-17 00:03 | NUR ---
PT RESTING IN HOSPITAL BED, EVEN AND BILATERAL CHEST RISE AND FALL NOTED, EYES CLOSED, APPEARS COMFORTABLE, SITTER IN LINE OF SIGHT. WCTM.
[2019-09-17] MEDS ORDERED: HYDROcodone/APAP 5/325 TABLET ONE ×3 (00:53→13:24)
--- NOTE | 2019-09-17 00:55 | NUR ---
PT AWAKE AND SITTING UP IN HOSPITAL BED, REQUESTING PAIN MEDS FOR HER LEFT SHOULDER THAT IS HURTING. PT STATES ITS A 10/10 PAIN. PT MEDICATED PER APR, NAD, SITTER IN LINE OF SIGHT. WCTM.
[2019-09-17] MEDS: HYDROcodone/APAP 5/325 TABLET PO PRN ×3 (01:03→13:26)
--- NOTE | 2019-09-17 02:06 | NUR ---
PT RESTING IN HOSPITAL BED, EVEN AND BILATERAL CHEST RISE AND FALL NOTED, EYES CLOSED, APPEARS COMFORTABLE, SITTER IN LINE OF SIGHT. WCTM.
--- NOTE | 2019-09-17 03:12 | NUR ---
PT IN HOSPITAL BED, CONDITION UNCHANGED, WCTM.
--- NOTE | 2019-09-17 04:24 | NUR ---
PT IN HOSPITAL BED, CONDITION UNCHANGED, WCTM.
--- NOTE | 2019-09-17 05:24 | NUR ---
PT RESTING IN HOSPITAL BED, EVEN AND BILATERAL CHEST RISE AND FALL NOTED, EYES OPEN, APPEARS COMFORTABLE, SITTER IN LINE OF SIGHT. PT AMBULATED WITH A SMOOTH AND STEADY GAIT TO AND FROM RESTROOM. WCTM.
--- NOTE | 2019-09-17 06:35 | NUR ---
PT MEDICATED PER MAR, IN AND OUT OF HOSPITAL BED WITH A SMOOTH AND STEADY GAIT. PT GIVEN ONE CUP OF DECAF COFFEE ALREADY, INFORMED SHE MAY HAVE A SECOND WITH MEDICATIONS. NAD, NO CHANGE IN CONDITION, SITTER IN LINE OF SIGHT, WCTM.
--- NOTE | 2019-09-17 06:52 | NUR ---
report to Jax REESE. pt care transferred at this time.
--- NOTE | 2019-09-17 08:23 | NUR ---
PT RECEIVED MEAL TRAY. DENIES FURTHER NEEDS AT THIS TIME
--- NOTE | 2019-09-17 10:42 | NUR ---
PT PROVIDED WITH TOOTHBRUSH AND TOOTHPASTE PER REQUEST. DENIES FURTHER NEEDS
[2019-09-17] MEDS ORDERED: ZIPRASIDONE 20MG CAPSULE ONE (11:01)
[2019-09-17] MEDS ORDERED: FLUOXETINE HCL 20 MG CAPSULE ONE (11:01)
[2019-09-17 11:13] VITALS: BP 142/60
[2019-09-17] MEDS: FLUOXETINE HCL 20 MG CAPSULE PO SCH (11:14)
[2019-09-17] MEDS: ZIPRASIDONE 40MG CAPSULE PO SCH (11:15)
--- NOTE | 2019-09-17 12:01 | NUR ---
TASK RN: PATY GREGORY DELIVERED
--- NOTE | 2019-09-17 12:11 | NUR ---
TASK RN: PT REFUSING TO EAT HER LUNCH TRAY. PT STATES "I ALREADY ATE BREAKFAST. I ATE TOO MUCH. I'M NOT EATING THAT." NADN. ALL SAFETY MEASURES OBTAINED
== END 2019-09-17 15:47 | disposition home or self-care (01) ==
LOC: ED 19:50
DX: R45.851 Suicidal ideations (principal); G40.909 Epilepsy, unspecified, not intractable, without status epilepticus; F33.9 Major depressive disorder, recurrent, unspecified; F17.200 Nicotine dependence, unspecified, uncomplicated
CPT/HCPCS: 36415; 80048; 80307; 82040; 85025; 99284

== ENCOUNTER 2020-04-26 11:19 | Emergency (ER) | payer MEDICARE ==
[~2020-04-26] VITALS: Ht 154.9 cm; Wt 50.0 kg
[~2020-04-26 11:19] MED LIST changes: +BENZ1TAB61 PO; -FLUO10CA14 PO; +FLUO10CA15 PO; +FOLI1TAB32 PO; +MELA5TAB14 PO; -NICO-487 TD; +NICO-587 TD; +OLAN10TA9 PO; +OLAN5TAB9 PO; -OXYC-302 PO; +OXYC1TAB14 PO; +TRAZ50TA66 PO
--- NOTE | 2020-04-26 11:37 | NUR ---
ERMD AT BEDSIDE FOR EVALUATION.
--- NOTE | 2020-04-26 11:44 | NUR ---
PATIENT BIB EMS WITH CHIEF C/O ANXIETY AND LEFT FOOT PAIN. PER EMS PATIENT HAS BEEN WANDERING AROUND [facility] FOR A COUPLE DAYS, WHEN EMS PICKED PATIENT UP PATIENT REPORTED LEFT FOOT PAIN AFTER STEPPING ON A NAIL "YEARS AGO." PER EMS PATIENT IS SUPPOSED TO BE ON ZYPREXA AND TRAZADONE BUT IS NOT COMPLIANT WITH MEDS. VSS EN ROUTE PER EMS. UPON ASSESSMENT PATIENT IS RAMBLING, GOING OFF ON TANGENTS, LEFT ANKLE HAS FULL ROM, NO OBVIOUS DEFORMITIES, VSS, WARM BLANKET PROVIDED AND CALL LIGHT WITHIN REACH.
[2020-04-26] MEDS ORDERED: IBUPROFEN 200 MG TABLET ONE (11:51)
--- NOTE | 2020-04-26 11:53 | NUR ---
X-RAY AT BEDSIDE.
[2020-04-26] MEDS ORDERED: IBUPROFEN 200 MG TABLET PO ONE (12:00)
--- NOTE | 2020-04-26 12:26 | NUR ---
PATIENT SITTING IN GURNEY, TALKING TO SELF, NADN, VSS, SIDE RAILS UP X2, CALL LIGHT WITHIN REACH. WAITING FOR X-RAY RESULTS AND SOCIAL WORK CONSULT.
--- NOTE | 2020-04-26 12:35 | NUR ---
PARTY PLAN DEALER AT BEDSIDE TO DISCUSS POC.
--- NOTE | 2020-04-26 13:12 | NUR ---
ERMD AT BEDSIDE TO DISCUSS POC.
--- NOTE | 2020-04-26 13:36 | NUR ---
VOICEMAIL LEFT FOR MAYO PRESS BUCKER, DISCHARGE PAPERWORK DONE, NEED TO DISCUSS PLAN FOR PATIENT WITH PRESS BUCKER.
--- NOTE | 2020-04-26 13:45 | NUR ---
SPOKE WITH MAYO, PATIENT OKAY TO GO BACK TO APARTMENT SHE WAS AT BEFORE, DISCHARGE PAPERWORK READY.
--- NOTE | 2020-04-26 14:38 | NUR ---
PER BREAK RN PATIENT REPORTS SHE HAS BEEN EVICTED FROM APARTMENT ON FILE, BREAK RN SPOKE WITH MASTER TAX ADVISOR TO VERIFY THIS INFORMATION. CAD ENGINEER WILL CONTACT [facility] AND NOTIFY RN WHEN ARRANGEMENTS HAVE BEEN MADE TO SEND PATIENT THERE.
--- NOTE | 2020-04-26 14:43 | NUR ---
SPOKE WITH MAYO SPA ATTENDANT, [facility] WILL TAKE PATIENT, HOWEVER, THEY DO NOT HAVE A BED UNTIL 1800 AND ASKED THAT WE HOLD PATIENT UNTIL CLOSER TO THE TIME AND THEN SEND HER OVER IN A TAXI.
--- NOTE | 2020-04-26 15:04 | NUR ---
REPORT FROM BRITNI REESE
--- NOTE | 2020-04-26 15:21 | NUR ---
PT GIVEN FOOD TRAY
[2020-04-26 17:30] VITALS: BP 107/50
== END 2020-04-26 17:57 | disposition home or self-care (01) ==
LOC: ED 13:45
DX: M79.672 Pain in left foot (principal); F22 Delusional disorders; F10.10 Alcohol abuse, uncomplicated; F17.200 Nicotine dependence, unspecified, uncomplicated; G40.909 Epilepsy, unspecified, not intractable, without status epilepticus; Y90.0 Blood alcohol level of less than 20 mg/100 ml
CPT/HCPCS: 99283

== ENCOUNTER 2020-05-01 20:50 | Inpatient (IN) | payer MEDICARE ==
[~2020-05-01] VITALS: Ht 154.9 cm; Wt 59.8 kg
[2020-05-01] MEDS ORDERED: POLYETHYLENE GLYCOL 17 GM PACKET PO PRN (21:30)
[2020-05-01] MEDS ORDERED: ONDANSETRON ODT 4 MG PO PRN (21:30)
[2020-05-01] MEDS ORDERED: BISACODYL 10 MG SUPP PR PRN (21:30)
[2020-05-01] MEDS ORDERED: DOCUSATE 100 MG CAPSULE PO PRN (21:30)
[2020-05-01] MEDS ORDERED: PLEASE ENTER HEIGHT AND WEIGHT MC SCH (23:30)
[2020-05-02 00:19] VITALS: BP 120/78
[2020-05-02 03:49] LABS: MICROSCOPIC NOT IND
[2020-05-02 07:24] VITALS: BP 126/78
[2020-05-02] MEDS: THIAMINE 100MG TABLET PO SCH (09:00)
[2020-05-02] MEDS: BENZTROPINE 1 MG TABLET PO SCH ×2 (09:00→20:49)
[2020-05-02] MEDS: NICOTINE 14MG/24 HR PATCH.TD24 TD SCH (09:00)
[2020-05-02] MEDS: OLANZAPINE 5 MG TABLET PO SCH (09:00)
[2020-05-02] MEDS ORDERED: FLUOXETINE 10 MG CAP PO SCH (09:00)
[2020-05-02] MEDS: FOLIC ACID 1 MG TABLET PO SCH (09:00)
[2020-05-02] MEDS: ACETAMINOPHEN 325 MG TABLET PO PRN ×3 (10:00→20:50)
[2020-05-02] MEDS ORDERED: TRAZODONE 100MG TABLET ONE (20:41)
[2020-05-02] MEDS: OLANZAPINE 10 MG TABLET PO SCH (20:49)
[2020-05-02] MEDS: TRAZODONE 50MG TABLET PO SCH (20:52)
[2020-05-02] MEDS: MELATONIN 5 MG TABLET PO SCH (21:04)
[2020-05-03 07:11] VITALS: BP 112/70
[2020-05-03] MEDS: BENZTROPINE 1 MG TABLET PO SCH ×2 (07:46→20:05)
[2020-05-03] MEDS: THIAMINE 100MG TABLET PO SCH (07:46)
[2020-05-03] MEDS: FOLIC ACID 1 MG TABLET PO SCH (07:46)
[2020-05-03] MEDS: FLUOXETINE HCL 20 MG CAPSULE PO SCH (07:46)
[2020-05-03] MEDS: OLANZAPINE 5 MG TABLET PO SCH (07:47)
[2020-05-03] MEDS: NICOTINE 14MG/24 HR PATCH.TD24 TD SCH (07:49)
[2020-05-03] MEDS: ACETAMINOPHEN 325 MG TABLET PO PRN ×3 (10:55→20:04)
[2020-05-03 19:55] VITALS: BP 144/77
[2020-05-03] MEDS: OLANZAPINE 10 MG TABLET PO SCH (20:04)
[2020-05-03] MEDS: MELATONIN 5 MG TABLET PO SCH (20:04)
[2020-05-03] MEDS: TRAZODONE 50MG TABLET PO SCH (20:05)
[2020-05-04] MEDS: ACETAMINOPHEN 325 MG TABLET PO PRN ×2 (05:36→19:18)
[2020-05-04 07:20] VITALS: BP 135/79
[2020-05-04] MEDS: OLANZAPINE 5 MG TABLET PO SCH (07:32)
[2020-05-04] MEDS: BENZTROPINE 1 MG TABLET PO SCH ×2 (08:50→20:45)
[2020-05-04] MEDS: THIAMINE 100MG TABLET PO SCH (08:50)
[2020-05-04] MEDS: FOLIC ACID 1 MG TABLET PO SCH (08:50)
[2020-05-04] MEDS: OLANZAPINE 5 MG TABLET PO PRN (08:50)
[2020-05-04] MEDS: FLUOXETINE HCL 20 MG CAPSULE PO SCH (08:50)
[2020-05-04] MEDS: NICOTINE 14MG/24 HR PATCH.TD24 TD SCH (10:37)
[2020-05-04] MEDS ORDERED: LORazepam 0.5MG TABLET ONE (11:56)
[2020-05-04] MEDS: LORazepam 1MG TABLET PO PRN (11:57)
[2020-05-04 19:54] VITALS: BP 153/65
[2020-05-04] MEDS: TRAZODONE 50MG TABLET PO SCH (20:45)
[2020-05-04] MEDS: MELATONIN 5 MG TABLET PO SCH (20:45)
[2020-05-04] MEDS: OLANZAPINE 10 MG TABLET PO SCH (20:45)
[2020-05-05] MEDS: LORazepam 1MG TABLET PO PRN ×2 (06:47→19:58)
[2020-05-05] MEDS: ACETAMINOPHEN 325 MG TABLET PO PRN ×2 (06:47→16:24)
[2020-05-05 07:51] VITALS: BP 121/77
[2020-05-05] MEDS: FLUOXETINE HCL 20 MG CAPSULE PO SCH (08:37)
[2020-05-05] MEDS: NICOTINE 14MG/24 HR PATCH.TD24 TD SCH (08:37)
[2020-05-05] MEDS: THIAMINE 100MG TABLET PO SCH (08:37)
[2020-05-05] MEDS: FOLIC ACID 1 MG TABLET PO SCH (08:37)
[2020-05-05] MEDS: BENZTROPINE 1 MG TABLET PO SCH ×2 (08:37→19:58)
[2020-05-05] MEDS: OLANZAPINE 5 MG TABLET PO SCH (08:37)
[2020-05-05 19:20] VITALS: BP 122/73
[2020-05-05] MEDS: OLANZAPINE 10 MG TABLET PO SCH (19:58)
[2020-05-05] MEDS: MELATONIN 5 MG TABLET PO SCH (19:58)
[2020-05-05] MEDS: TRAZODONE 50MG TABLET PO SCH (19:58)
[2020-05-06] MEDS: LORazepam 1MG TABLET PO PRN ×2 (07:35→15:46)
[2020-05-06 07:43] VITALS: BP 126/76
[2020-05-06] MEDS: NICOTINE 14MG/24 HR PATCH.TD24 TD SCH (08:57)
[2020-05-06] MEDS: OLANZAPINE 5 MG TABLET PO SCH (08:57)
[2020-05-06] MEDS: BENZTROPINE 1 MG TABLET PO SCH ×2 (08:57→20:15)
[2020-05-06] MEDS: FOLIC ACID 1 MG TABLET PO SCH (08:57)
[2020-05-06] MEDS: FLUOXETINE HCL 20 MG CAPSULE PO SCH (08:58)
[2020-05-06] MEDS: THIAMINE 100MG TABLET PO SCH (08:58)
[2020-05-06] MEDS: ACETAMINOPHEN 325 MG TABLET PO PRN (15:45)
[2020-05-06 20:04] VITALS: BP 116/76
[2020-05-06] MEDS: MELATONIN 5 MG TABLET PO SCH (20:15)
[2020-05-06] MEDS: TRAZODONE 50MG TABLET PO SCH (20:15)
[2020-05-06] MEDS: OLANZAPINE 10 MG TABLET PO SCH (20:16)
[2020-05-07 07:57] VITALS: BP 184/90
[2020-05-07] MEDS: NICOTINE 14MG/24 HR PATCH.TD24 TD SCH (09:06)
[2020-05-07] MEDS: BENZTROPINE 1 MG TABLET PO SCH ×2 (09:06→20:03)
[2020-05-07] MEDS: OLANZAPINE 5 MG TABLET PO SCH (09:07)
[2020-05-07] MEDS: FOLIC ACID 1 MG TABLET PO SCH (09:07)
[2020-05-07] MEDS: THIAMINE 100MG TABLET PO SCH (09:07)
[2020-05-07] MEDS: FLUOXETINE HCL 20 MG CAPSULE PO SCH (09:07)
[2020-05-07] MEDS: LORazepam 1MG TABLET PO PRN (09:48)
[2020-05-07] MEDS: OLANZAPINE 5 MG TABLET PO PRN (09:48)
[2020-05-07] MEDS: ACETAMINOPHEN 325 MG TABLET PO PRN (13:27)
[2020-05-07 19:20] VITALS: BP 134/79
[2020-05-07] MEDS: TRAZODONE 50MG TABLET PO SCH (20:03)
[2020-05-07] MEDS: OLANZAPINE 10 MG TABLET PO SCH (20:03)
[2020-05-07] MEDS: MELATONIN 5 MG TABLET PO SCH (20:04)
[2020-05-08 07:58] VITALS: BP 133/67
[2020-05-08] MEDS: THIAMINE 100MG TABLET PO SCH (09:16)
[2020-05-08] MEDS: ACETAMINOPHEN 325 MG TABLET PO PRN ×2 (09:16→18:13)
[2020-05-08] MEDS: BENZTROPINE 1 MG TABLET PO SCH ×2 (09:16→20:34)
[2020-05-08] MEDS: NICOTINE 14MG/24 HR PATCH.TD24 TD SCH (09:16)
[2020-05-08] MEDS: FLUOXETINE HCL 20 MG CAPSULE PO SCH (09:16)
[2020-05-08] MEDS: OLANZAPINE 5 MG TABLET PO SCH (09:16)
[2020-05-08] MEDS: FOLIC ACID 1 MG TABLET PO SCH (09:16)
[2020-05-08 20:10] VITALS: BP 110/84
[2020-05-08] MEDS: MELATONIN 5 MG TABLET PO SCH (20:34)
[2020-05-08] MEDS: TRAZODONE 50MG TABLET PO SCH (20:34)
[2020-05-08] MEDS: OLANZAPINE 10 MG TABLET PO SCH (20:35)
[2020-05-09] MEDS: LORazepam 1MG TABLET PO PRN ×2 (02:00→20:13)
[2020-05-09] MEDS: ACETAMINOPHEN 325 MG TABLET PO PRN ×3 (02:00→20:09)
[2020-05-09 07:58] VITALS: BP 112/75
[2020-05-09] MEDS: NICOTINE 14MG/24 HR PATCH.TD24 TD SCH (08:04)
[2020-05-09] MEDS: FOLIC ACID 1 MG TABLET PO SCH (08:05)
[2020-05-09] MEDS: FLUOXETINE HCL 20 MG CAPSULE PO SCH (08:05)
[2020-05-09] MEDS: BENZTROPINE 1 MG TABLET PO SCH ×2 (08:06→20:10)
[2020-05-09] MEDS: THIAMINE 100MG TABLET PO SCH (08:06)
[2020-05-09] MEDS: OLANZAPINE 5 MG TABLET PO SCH (08:06)
[2020-05-09 19:55] VITALS: BP 124/73
[2020-05-09] MEDS: OLANZAPINE 10 MG TABLET PO SCH (20:09)
[2020-05-09] MEDS: TRAZODONE 50MG TABLET PO SCH (20:09)
[2020-05-09] MEDS: MELATONIN 5 MG TABLET PO SCH (20:10)
[2020-05-10 07:09] VITALS: BP 111/70
[2020-05-10] MEDS: THIAMINE 100MG TABLET PO SCH (07:29)
[2020-05-10] MEDS: ACETAMINOPHEN 325 MG TABLET PO PRN ×2 (07:29→16:26)
[2020-05-10] MEDS: FOLIC ACID 1 MG TABLET PO SCH (07:30)
[2020-05-10] MEDS: BENZTROPINE 1 MG TABLET PO SCH ×2 (07:30→20:17)
[2020-05-10] MEDS: FLUOXETINE HCL 20 MG CAPSULE PO SCH (07:30)
[2020-05-10] MEDS: LORazepam 1MG TABLET PO PRN ×2 (07:30→20:18)
[2020-05-10] MEDS: OLANZAPINE 5 MG TABLET PO SCH (07:30)
[2020-05-10] MEDS: NICOTINE 14MG/24 HR PATCH.TD24 TD SCH (07:32)
[2020-05-10 19:20] VITALS: BP 106/67
[2020-05-10] MEDS: TRAZODONE 50MG TABLET PO SCH (20:17)
[2020-05-10] MEDS: MELATONIN 5 MG TABLET PO SCH (20:17)
[2020-05-10] MEDS: OLANZAPINE 10 MG TABLET PO SCH (20:17)
[2020-05-11 07:20] VITALS: BP 97/58
[2020-05-11] MEDS: FOLIC ACID 1 MG TABLET PO SCH (07:36)
[2020-05-11] MEDS: FLUOXETINE HCL 20 MG CAPSULE PO SCH (07:36)
[2020-05-11] MEDS: OLANZAPINE 5 MG TABLET PO SCH (07:36)
[2020-05-11] MEDS: LORazepam 1MG TABLET PO PRN (07:36)
[2020-05-11] MEDS: ACETAMINOPHEN 325 MG TABLET PO PRN ×2 (07:36→16:44)
[2020-05-11] MEDS: THIAMINE 100MG TABLET PO SCH (07:36)
[2020-05-11] MEDS: NICOTINE 14MG/24 HR PATCH.TD24 TD SCH (07:37)
[2020-05-11] MEDS: BENZTROPINE 1 MG TABLET PO SCH ×2 (07:37→20:31)
[2020-05-11 19:55] VITALS: BP 114/71
[2020-05-11] MEDS: OLANZAPINE 10 MG TABLET PO SCH (20:31)
[2020-05-11] MEDS: TRAZODONE 50MG TABLET PO SCH (20:31)
[2020-05-11] MEDS: MELATONIN 5 MG TABLET PO SCH (20:31)
[2020-05-12 07:54] VITALS: BP 139/81
[2020-05-12] MEDS: FLUOXETINE HCL 20 MG CAPSULE PO SCH (08:06)
[2020-05-12] MEDS: FOLIC ACID 1 MG TABLET PO SCH (08:06)
[2020-05-12] MEDS: OLANZAPINE 5 MG TABLET PO SCH (08:06)
[2020-05-12] MEDS: BENZTROPINE 1 MG TABLET PO SCH ×2 (08:06→21:36)
[2020-05-12] MEDS: THIAMINE 100MG TABLET PO SCH (08:06)
[2020-05-12] MEDS: NICOTINE 14MG/24 HR PATCH.TD24 TD SCH (08:07)
[2020-05-12] MEDS: ACETAMINOPHEN 325 MG TABLET PO PRN (15:30)
[2020-05-12 20:00] VITALS: BP 112/65
[2020-05-12] MEDS: MELATONIN 5 MG TABLET PO SCH (21:36)
[2020-05-12] MEDS: TRAZODONE 50MG TABLET PO SCH (21:36)
[2020-05-12] MEDS: OLANZAPINE 10 MG TABLET PO SCH (21:36)
[2020-05-12 22:38] VITALS: BP 133/74
[2020-05-12] MEDS: LORazepam 1MG TABLET PO PRN (22:41)
[2020-05-13 07:55] VITALS: BP 126/80
[2020-05-13] MEDS: ACETAMINOPHEN 325 MG TABLET PO PRN (08:15)
[2020-05-13] MEDS: THIAMINE 100MG TABLET PO SCH (08:16)
[2020-05-13] MEDS: OLANZAPINE 5 MG TABLET PO SCH (08:16)
[2020-05-13] MEDS: BENZTROPINE 1 MG TABLET PO SCH ×2 (08:16→20:27)
[2020-05-13] MEDS: FLUOXETINE HCL 20 MG CAPSULE PO SCH (08:16)
[2020-05-13] MEDS: FOLIC ACID 1 MG TABLET PO SCH (08:16)
[2020-05-13] MEDS: NICOTINE 14MG/24 HR PATCH.TD24 TD SCH (08:17)
[2020-05-13 18:25] VITALS: BP 121/71
[2020-05-13] MEDS: LORazepam 1MG TABLET PO PRN (20:27)
[2020-05-13] MEDS: TRAZODONE 50MG TABLET PO SCH (20:27)
[2020-05-13] MEDS: OLANZAPINE 10 MG TABLET PO SCH (20:28)
[2020-05-13] MEDS: MELATONIN 5 MG TABLET PO SCH (20:32)
[2020-05-14 07:58] VITALS: BP 130/78
[2020-05-14] MEDS: NICOTINE 14MG/24 HR PATCH.TD24 TD SCH (09:06)
[2020-05-14] MEDS: FLUOXETINE HCL 20 MG CAPSULE PO SCH (09:07)
[2020-05-14] MEDS: FOLIC ACID 1 MG TABLET PO SCH (09:07)
[2020-05-14] MEDS: THIAMINE 100MG TABLET PO SCH (09:07)
[2020-05-14] MEDS: OLANZAPINE 5 MG TABLET PO SCH (09:10)
[2020-05-14] MEDS: BENZTROPINE 1 MG TABLET PO SCH ×2 (09:10→20:03)
[2020-05-14] MEDS: ACETAMINOPHEN 325 MG TABLET PO PRN (14:37)
[2020-05-14 19:53] VITALS: BP 121/73
[2020-05-14] MEDS: TRAZODONE 50MG TABLET PO SCH (20:03)
[2020-05-14] MEDS: LORazepam 1MG TABLET PO PRN ×2 (20:03→20:12)
[2020-05-14] MEDS: OLANZAPINE 10 MG TABLET PO SCH (20:03)
[2020-05-14] MEDS: MELATONIN 5 MG TABLET PO SCH (20:11)
[2020-05-15 07:26] VITALS: BP 124/72
[2020-05-15] MEDS: NICOTINE 14MG/24 HR PATCH.TD24 TD SCH (08:36)
[2020-05-15] MEDS: ACETAMINOPHEN 325 MG TABLET PO PRN ×2 (08:36→18:25)
[2020-05-15] MEDS: LORazepam 1MG TABLET PO PRN (08:36)
[2020-05-15] MEDS: BENZTROPINE 1 MG TABLET PO SCH ×2 (08:36→20:07)
[2020-05-15] MEDS: FLUOXETINE HCL 20 MG CAPSULE PO SCH (08:36)
[2020-05-15] MEDS: FOLIC ACID 1 MG TABLET PO SCH (08:36)
[2020-05-15] MEDS: OLANZAPINE 5 MG TABLET PO SCH (08:37)
[2020-05-15] MEDS: THIAMINE 100MG TABLET PO SCH (08:37)
[2020-05-15] MEDS ORDERED: HYDR-826 PO (17:16)
[2020-05-15] MEDS ORDERED: FLUO20CA23 PO (17:16)
[2020-05-15] MEDS ORDERED: OLAN10TA9 PO (17:16)
[2020-05-15] MEDS ORDERED: NICO-486 TD (17:16)
[2020-05-15] MEDS ORDERED: MELA5TAB14 PO (17:16)
[2020-05-15] MEDS ORDERED: BENZ1TAB61 PO (17:16)
[2020-05-15] MEDS ORDERED: OLAN5TAB9 PO (17:16)
[2020-05-15 19:20] VITALS: BP 113/70
[2020-05-15] MEDS: TRAZODONE 50MG TABLET PO SCH (20:07)
[2020-05-15] MEDS: MELATONIN 5 MG TABLET PO SCH (20:07)
[2020-05-15] MEDS: OLANZAPINE 10 MG TABLET PO SCH (20:07)
[2020-05-16] MEDS: ACETAMINOPHEN 325 MG TABLET PO PRN ×2 (06:35→11:19)
[2020-05-16 07:09] VITALS: BP 110/77
[2020-05-16] MEDS: FOLIC ACID 1 MG TABLET PO SCH (08:05)
[2020-05-16] MEDS: NICOTINE 14MG/24 HR PATCH.TD24 TD SCH (08:05)
[2020-05-16] MEDS: FLUOXETINE HCL 20 MG CAPSULE PO SCH (08:05)
[2020-05-16] MEDS: THIAMINE 100MG TABLET PO SCH (08:05)
[2020-05-16] MEDS: LORazepam 1MG TABLET PO PRN (08:05)
[2020-05-16] MEDS: OLANZAPINE 5 MG TABLET PO SCH (08:06)
[2020-05-16] MEDS: BENZTROPINE 1 MG TABLET PO SCH (08:07)
== END 2020-05-16 13:10 | disposition home or self-care (01) | DRG 885 ==
LOC: 3E 23:01
PROVIDERS: ADMIT Psychiatry & Neurology Psychosomatic Medicine; ATTEND Psychiatry & Neurology Psychosomatic Medicine
DX: F31.9 Bipolar disorder, unspecified (principal); R45.851 Suicidal ideations; E46 Unspecified protein-calorie malnutrition; F20.0 Paranoid schizophrenia; F50.9 Eating disorder, unspecified; F10.20 Alcohol dependence, uncomplicated; Z88.0 Allergy status to penicillin; E78.5 Hyperlipidemia, unspecified; Z68.24 Body mass index [BMI] 24.0-24.9, adult; G47.00 Insomnia, unspecified; I73.9 Peripheral vascular disease, unspecified; Z59.0 Homelessness; Z79.899 Other long term (current) drug therapy; Z82.3 Family history of stroke; Z82.5 Family history of asthma and other chronic lower respiratory diseases; Z87.820 Personal history of traumatic brain injury; Z87.891 Personal history of nicotine dependence; Z91.5 Personal history of self-harm
CPT/HCPCS: 81003; Q0177

== ENCOUNTER 2020-05-21 20:18 | Emergency (ER) | payer MEDICARE ==
[~2020-05-21] VITALS: Ht 157.5 cm; Wt 56.9 kg
[~2020-05-21 20:18] MED LIST changes: +HYDR-826 PO
--- NOTE | 2020-05-21 20:35 | NUR ---
CATHETER FINISHER AND INSPECTOR: PATIENT ASKED TRIAGE TECH "DO YOU HAVE ANY FREE SAMPLES OF VICODIN OR SOMETHING FOR PAIN?"
--- NOTE | 2020-05-21 21:44 | NUR ---
Pt states she has gout pain and left shoulder pain from a fall 6 months ago. Pt denies SOB or CP. Warm blanket given. Will monitor.
[2020-05-21 22:14] VITALS: BP 127/78
--- NOTE | 2020-05-21 22:17 | NUR ---
Patient/Caregiver given discharge instructions and they have confirmed that they understand the instructions. Patient ambulatory with steady gait.
== END 2020-05-21 22:23 | disposition home or self-care (01) ==
LOC: ED 21:26
DX: M79.672 Pain in left foot (principal); G40.909 Epilepsy, unspecified, not intractable, without status epilepticus
CPT/HCPCS: 99281

== ENCOUNTER 2020-08-10 01:18 | Emergency (ER) | payer MEDICARE ==
[2020-08-10 01:23] VITALS: BP 117/76
== END 2020-08-10 02:13 | disposition home or self-care (01) ==
LOC: ED 02:07
DX: R45.851 Suicidal ideations (principal); Z72.9 Problem related to lifestyle, unspecified; Z87.891 Personal history of nicotine dependence
CPT/HCPCS: 99284

== ENCOUNTER 2020-09-19 15:10 | Emergency (ER) | payer MEDICARE, MEDICAID ==
[~2020-09-19] VITALS: Ht 157.5 cm; Wt 49.5 kg
[~2020-09-19 15:10] MED LIST changes: +OLAN10TA69 PO; -OLAN10TA9 PO; +OLAN5TAB69 PO; -OLAN5TAB9 PO
[2020-09-19 15:21] VITALS: BP 126/77
== END 2020-09-19 16:14 | disposition left against medical advice (07) ==
LOC: ED 15:43
DX: M79.671 Pain in right foot (principal); M79.672 Pain in left foot
CPT/HCPCS: 99281

== ENCOUNTER 2020-09-28 08:47 | Emergency (ER) | payer MEDICAID, MEDICARE ==
[~2020-09-28] VITALS: Ht 152.4 cm; Wt 50.0 kg
[2020-09-28 08:54] VITALS: BP 131/68
[2020-09-28] MEDS ORDERED: OLANZAPINE 5 MG TABLET PO ONE (09:23)
[2020-09-28] MEDS ORDERED: OLANZAPINE 5 MG TABLET ONE (09:34)
--- NOTE | 2020-09-28 09:56 | NUR ---
PT BIB EMS FOR NEED OF PSYCH/SOCIAL WORK NEEDS. PT WANTS TO GO BACK TO [facility], OUT OF MEDS, SEARCHING FOR HOUSING. DENIES SI
[2020-09-28 10:29] LABS: BASOPHILS % (AUTO) 0 % (0-1); EOSINOPHILS % (AUTO) 1 % (1-7); LYMPHOCYTES % (AUTO) 17 % (22-44); MEAN CORPUSCULAR HEMOGLOBIN 31.8 pg (27.0-34.8); MEAN CORPUSCULAR HGB CONC 33.9 g/dL (32.4-35.8); MEAN PLATELET VOLUME 7.5 fL (7.4-10.4); MONOCYTES % (AUTO) 10 % (2-9); NEUTROPHILS % (AUTO) 72 % (42-75); PLATELET COUNT 294 x10^3/uL (130-400); RED BLOOD COUNT 4.25 x10^6/uL (3.82-5.3); RED CELL DISTRIBUTION WIDTH 13.5 % (9.6-15.2)
--- NOTE | 2020-09-28 10:34 | NUR ---
PT GIVEN COFFEE, CALL LIGHT IN PLACE
[2020-09-28 10:39] LABS: ALBUMIN 3.3 g/dL (3.4-5.0); ANION GAP 4 mmol/L (5-15); CHLORIDE 105 mmol/L (98-107)
[2020-09-28 11:03] LABS: CREATININE 0.42 mg/dL (0.55-1.02)
--- NOTE | 2020-09-28 12:30 | NUR ---
PT SLEEPING, SIDE RAILS IN PLACE
[2020-09-28] MEDS ORDERED: FLUOXETINE 10 MG CAP PO ONE (13:00)
[2020-09-28] MEDS ORDERED: BENZTROPINE 1 MG TABLET PO ONE (13:00)
--- NOTE | 2020-09-28 13:00 | NUR ---
POC TO BE DC. SEEN BY TEXTILE SCIENCE TECHNICIAN
[2020-09-28] MEDS ORDERED: OLAN5TAB69 PO (13:02)
[2020-09-28] MEDS ORDERED: BENZ1TAB61 PO (13:02)
[2020-09-28] MEDS ORDERED: FLUO20CA23 PO (13:02)
[2020-09-28] MEDS ORDERED: TRAZ50TA66 PO (13:02)
[2020-09-28] MEDS ORDERED: BENZTROPINE 1 MG TABLET ONE (13:58)
[2020-09-28] MEDS ORDERED: FLUOXETINE 10 MG CAP ONE (13:58)
--- NOTE | 2020-09-28 14:10 | NUR ---
MEDICATED PER ORDERS
== END 2020-09-28 14:13 | disposition home or self-care (01) ==
LOC: ED 12:13
DX: F20.89 Other schizophrenia (principal); F39 Unspecified mood [affective] disorder; G40.909 Epilepsy, unspecified, not intractable, without status epilepticus; Z87.891 Personal history of nicotine dependence; Z88.0 Allergy status to penicillin
CPT/HCPCS: 36415; 80048; 80299; 80320; 80329; 82040; 85025; 99284; G0480

== ENCOUNTER 2020-10-24 18:04 | Inpatient (IN) | payer MEDICARE, MEDICAID ==
[~2020-10-24] VITALS: Ht 154.9 cm; Wt 50.0 kg
[~2020-10-24 18:04] MED LIST changes: +OXYC1TAB12 PO; -OXYC1TAB14 PO
[2020-10-24] MEDS ORDERED: ACETAMINOPHEN 325 MG TABLET PO PRN (21:30)
[2020-10-24] MEDS ORDERED: DOCUSATE 100 MG CAPSULE PO PRN (21:30)
[2020-10-24] MEDS ORDERED: ONDANSETRON ODT 4 MG PO PRN (21:30)
[2020-10-24] MEDS ORDERED: BISACODYL 10 MG SUPP PR PRN (21:30)
[2020-10-24] MEDS ORDERED: POLYETHYLENE GLYCOL 17 GM PACKET PO PRN (21:30)
[2020-10-24] MEDS ORDERED: PLEASE ENTER HEIGHT AND WEIGHT MC SCH (23:30)
[2020-10-25 01:12] VITALS: BP 121/75
[2020-10-25 01:34] VITALS: BP 121/75
[2020-10-25 07:35] VITALS: BP 123/73
[2020-10-25 07:53] LABS: BASOPHILS % (AUTO) 1 % (0-1); EOSINOPHILS % (AUTO) 6 % (1-7); LYMPHOCYTES % (AUTO) 22 % (22-44); MEAN CORPUSCULAR HEMOGLOBIN 31.8 pg (27.0-34.8); MEAN CORPUSCULAR HGB CONC 34.3 g/dL (32.4-35.8); MONOCYTES % (AUTO) 10 % (2-9); NEUTROPHILS % (AUTO) 61 % (42-75); PLATELET COUNT 393 x10^3/uL (130-400); RED BLOOD COUNT 4.14 x10^6/uL (3.82-5.3); RED CELL DISTRIBUTION WIDTH 13.8 % (9.6-15.2)
[2020-10-25 07:56] LABS: ALANINE AMINOTRANSFERASE 12 U/L (12-78); ALBUMIN 2.7 g/dL (3.4-5.0); ANION GAP 7 mmol/L (5-15); CHLORIDE 106 mmol/L (98-107); CREATININE 0.52 mg/dL (0.55-1.02)
[2020-10-25 08:12] LABS: CHOL/HDL RATIO 3.2; LDL/HDL RATIO 1.8 (0.5-3.0)
[2020-10-25 08:22] LABS: ALKALINE PHOSPHATASE 94 U/L (45-117); BILIRUBIN,TOTAL 0.4 mg/dL (0.2-1.0); FREE T4 (FREE THYROXINE) 1.03 ng/dL (0.76-1.46); TOTAL PROTEIN 6.2 g/dL (6.4-8.2)
[2020-10-25] MEDS ORDERED: BENZTROPINE 1 MG TABLET ONE (09:18)
[2020-10-25] MEDS ORDERED: FOLIC ACID 1 MG TABLET ONE (09:18)
[2020-10-25] MEDS ORDERED: THIAMINE 100MG TABLET ONE (09:19)
[2020-10-25] MEDS ORDERED: FLUOXETINE HCL 20 MG CAPSULE ONE (09:19)
[2020-10-25] MEDS: NICOTINE 7 MG/24 HR PATCH.TD24 TD SCH (09:21)
[2020-10-25] MEDS: FOLIC ACID 1 MG TABLET PO SCH (09:22)
[2020-10-25] MEDS: FLUOXETINE HCL 20 MG CAPSULE PO SCH (09:22)
[2020-10-25] MEDS: THIAMINE 100MG TABLET PO SCH (09:22)
[2020-10-25] MEDS: BENZTROPINE 1 MG TABLET PO SCH ×2 (09:22→21:03)
[2020-10-25 12:29] LABS: MICROSCOPIC NOT IND
[2020-10-25 19:26] VITALS: BP 118/79
[2020-10-25] MEDS: ATORVASTATIN 40 MG TABLET PO SCH (21:02)
[2020-10-25] MEDS: MELATONIN 5 MG TABLET PO SCH (21:02)
[2020-10-25] MEDS: TRAZODONE 50MG TABLET PO SCH (21:03)
[2020-10-25] MEDS: OLANZAPINE 10 MG TABLET PO SCH (21:03)
[2020-10-26] MEDS: ASPIRIN 81 MG TABLET EC PO SCH (06:08)
[2020-10-26 07:15] VITALS: BP 116/69
[2020-10-26] MEDS: FLUOXETINE HCL 20 MG CAPSULE PO SCH (08:19)
[2020-10-26] MEDS: THIAMINE 100MG TABLET PO SCH (08:19)
[2020-10-26] MEDS: FOLIC ACID 1 MG TABLET PO SCH (08:20)
[2020-10-26] MEDS: NICOTINE 7 MG/24 HR PATCH.TD24 TD SCH (08:20)
[2020-10-26] MEDS: BENZTROPINE 1 MG TABLET PO SCH ×2 (08:20→20:00)
[2020-10-26 19:36] VITALS: BP 116/69
[2020-10-26] MEDS: ATORVASTATIN 40 MG TABLET PO SCH (20:00)
[2020-10-26] MEDS: TRAZODONE 50MG TABLET PO SCH (20:00)
[2020-10-26] MEDS: MELATONIN 5 MG TABLET PO SCH (20:00)
[2020-10-26] MEDS: OLANZAPINE 10 MG TABLET PO SCH (20:01)
[2020-10-27] MEDS: ASPIRIN 81 MG TABLET EC PO SCH (06:24)
[2020-10-27 07:26] VITALS: BP 109/71
[2020-10-27] MEDS: BENZTROPINE 1 MG TABLET PO SCH ×2 (07:47→20:07)
[2020-10-27] MEDS: FLUOXETINE HCL 20 MG CAPSULE PO SCH (07:48)
[2020-10-27] MEDS: THIAMINE 100MG TABLET PO SCH (07:48)
[2020-10-27] MEDS: NICOTINE 7 MG/24 HR PATCH.TD24 TD SCH (07:48)
[2020-10-27] MEDS: FOLIC ACID 1 MG TABLET PO SCH (07:48)
[2020-10-27 19:39] VITALS: BP 144/78
[2020-10-27] MEDS: MELATONIN 5 MG TABLET PO SCH (20:07)
[2020-10-27] MEDS: ATORVASTATIN 40 MG TABLET PO SCH (20:07)
[2020-10-27] MEDS: OLANZAPINE 10 MG TABLET PO SCH (20:07)
[2020-10-27] MEDS: TRAZODONE 50MG TABLET PO SCH (20:08)
[2020-10-27] MEDS: LORazepam 0.5MG TABLET PO PRN (23:59)
[2020-10-28 05:48] VITALS: BP 101/65
[2020-10-28] MEDS: ASPIRIN 81 MG TABLET EC PO SCH (06:04)
[2020-10-28] MEDS: NICOTINE 7 MG/24 HR PATCH.TD24 TD SCH (09:35)
[2020-10-28] MEDS: FLUOXETINE HCL 20 MG CAPSULE PO SCH (09:35)
[2020-10-28] MEDS: FOLIC ACID 1 MG TABLET PO SCH (09:36)
[2020-10-28] MEDS: BENZTROPINE 1 MG TABLET PO SCH ×2 (09:36→21:44)
[2020-10-28] MEDS: THIAMINE 100MG TABLET PO SCH (09:36)
[2020-10-28] MEDS: PIPERONYL BUTOXIDE/PYRETHRINS 4OZ. SHAMPOO TP SCH (14:25)
[2020-10-28 19:42] VITALS: BP 105/70
[2020-10-28] MEDS: OLANZAPINE 10 MG TABLET PO SCH (21:43)
[2020-10-28] MEDS: ATORVASTATIN 40 MG TABLET PO SCH (21:44)
[2020-10-28] MEDS: MELATONIN 5 MG TABLET PO SCH (21:44)
[2020-10-28] MEDS: TRAZODONE 50MG TABLET PO SCH (21:44)
[2020-10-29] MEDS: ASPIRIN 81 MG TABLET EC PO SCH (06:17)
[2020-10-29 07:37] VITALS: BP 116/72
[2020-10-29] MEDS: NICOTINE 7 MG/24 HR PATCH.TD24 TD SCH (09:01)
[2020-10-29] MEDS: BENZTROPINE 1 MG TABLET PO SCH ×2 (09:01→21:20)
[2020-10-29] MEDS: FLUOXETINE HCL 20 MG CAPSULE PO SCH (09:02)
[2020-10-29] MEDS: THIAMINE 100MG TABLET PO SCH (09:02)
[2020-10-29] MEDS: FOLIC ACID 1 MG TABLET PO SCH (09:02)
[2020-10-29 19:55] VITALS: BP 130/78
[2020-10-29] MEDS: ATORVASTATIN 40 MG TABLET PO SCH (21:20)
[2020-10-29] MEDS: OLANZAPINE 10 MG TABLET PO SCH (21:20)
[2020-10-29] MEDS: TRAZODONE 50MG TABLET PO SCH (21:20)
[2020-10-29] MEDS: MELATONIN 5 MG TABLET PO SCH (21:20)
[2020-10-30] MEDS: ASPIRIN 81 MG TABLET EC PO SCH (05:48)
[2020-10-30 07:33] VITALS: BP 110/72
[2020-10-30] MEDS: NICOTINE 7 MG/24 HR PATCH.TD24 TD SCH (10:03)
[2020-10-30] MEDS: FOLIC ACID 1 MG TABLET PO SCH (10:04)
[2020-10-30] MEDS: FLUOXETINE HCL 20 MG CAPSULE PO SCH (10:05)
[2020-10-30] MEDS: THIAMINE 100MG TABLET PO SCH (10:06)
[2020-10-30] MEDS: BENZTROPINE 1 MG TABLET PO SCH ×2 (10:08→20:29)
[2020-10-30 19:26] VITALS: BP 131/78
[2020-10-30] MEDS: ATORVASTATIN 40 MG TABLET PO SCH (20:29)
[2020-10-30] MEDS: MELATONIN 5 MG TABLET PO SCH (20:29)
[2020-10-30] MEDS: TRAZODONE 50MG TABLET PO SCH (20:29)
[2020-10-30] MEDS: OLANZAPINE 10 MG TABLET PO SCH (20:30)
[2020-10-31] MEDS: ASPIRIN 81 MG TABLET EC PO SCH (06:00)
[2020-10-31 07:25] VITALS: BP 105/66
[2020-10-31] MEDS: BENZTROPINE 1 MG TABLET PO SCH ×2 (08:22→20:59)
[2020-10-31] MEDS: NICOTINE 7 MG/24 HR PATCH.TD24 TD SCH (08:22)
[2020-10-31] MEDS: FLUOXETINE HCL 20 MG CAPSULE PO SCH (08:22)
[2020-10-31] MEDS: THIAMINE 100MG TABLET PO SCH (08:22)
[2020-10-31] MEDS: FOLIC ACID 1 MG TABLET PO SCH (08:22)
[2020-10-31 19:30] VITALS: BP 115/77
[2020-10-31] MEDS: OLANZAPINE 10 MG TABLET PO SCH (20:59)
[2020-10-31] MEDS: ATORVASTATIN 40 MG TABLET PO SCH (20:59)
[2020-10-31] MEDS: TRAZODONE 50MG TABLET PO SCH (20:59)
[2020-10-31] MEDS: MELATONIN 5 MG TABLET PO SCH (20:59)
[2020-11-01] MEDS: ASPIRIN 81 MG TABLET EC PO SCH (06:00)
[2020-11-01 07:24] VITALS: BP 111/60
[2020-11-01] MEDS: FOLIC ACID 1 MG TABLET PO SCH (08:25)
[2020-11-01] MEDS: FLUOXETINE HCL 20 MG CAPSULE PO SCH (08:25)
[2020-11-01] MEDS: THIAMINE 100MG TABLET PO SCH (08:25)
[2020-11-01] MEDS: NICOTINE 7 MG/24 HR PATCH.TD24 TD SCH (08:25)
[2020-11-01] MEDS: BENZTROPINE 1 MG TABLET PO SCH ×2 (08:25→19:54)
[2020-11-01 19:17] VITALS: BP 97/63
[2020-11-01] MEDS: OLANZAPINE 10 MG TABLET PO SCH (19:53)
[2020-11-01] MEDS: TRAZODONE 50MG TABLET PO SCH (19:53)
[2020-11-01] MEDS: MELATONIN 5 MG TABLET PO SCH (19:53)
[2020-11-01] MEDS: ATORVASTATIN 40 MG TABLET PO SCH (19:53)
[2020-11-02] MEDS: ASPIRIN 81 MG TABLET EC PO SCH (06:11)
[2020-11-02 07:32] VITALS: BP 121/76
[2020-11-02] MEDS: NICOTINE 7 MG/24 HR PATCH.TD24 TD SCH (09:00)
[2020-11-02] MEDS: BENZTROPINE 1 MG TABLET PO SCH ×2 (09:37→21:01)
[2020-11-02] MEDS: FOLIC ACID 1 MG TABLET PO SCH (09:37)
[2020-11-02] MEDS: THIAMINE 100MG TABLET PO SCH (09:37)
[2020-11-02] MEDS: FLUOXETINE HCL 20 MG CAPSULE PO SCH (09:37)
[2020-11-02 19:44] VITALS: BP 113/63
[2020-11-02] MEDS: MELATONIN 5 MG TABLET PO SCH (21:01)
[2020-11-02] MEDS: ATORVASTATIN 40 MG TABLET PO SCH (21:01)
[2020-11-02] MEDS: OLANZAPINE 10 MG TABLET PO SCH (21:01)
[2020-11-02] MEDS: TRAZODONE 50MG TABLET PO SCH (21:01)
[2020-11-03] MEDS: ASPIRIN 81 MG TABLET EC PO SCH (06:22)
[2020-11-03 07:39] VITALS: BP 111/71
[2020-11-03] MEDS: FOLIC ACID 1 MG TABLET PO SCH (09:19)
[2020-11-03] MEDS: NICOTINE 7 MG/24 HR PATCH.TD24 TD SCH (09:19)
[2020-11-03] MEDS: BENZTROPINE 1 MG TABLET PO SCH ×2 (09:19→20:53)
[2020-11-03] MEDS: THIAMINE 100MG TABLET PO SCH (09:19)
[2020-11-03] MEDS: FLUOXETINE HCL 20 MG CAPSULE PO SCH (09:20)
[2020-11-03] MEDS: PIPERONYL BUTOXIDE/PYRETHRINS 4OZ. SHAMPOO TP SCH (13:55)
[2020-11-03 20:00] VITALS: BP 115/74
[2020-11-03] MEDS: ATORVASTATIN 40 MG TABLET PO SCH (20:53)
[2020-11-03] MEDS: TRAZODONE 50MG TABLET PO SCH (20:53)
[2020-11-03] MEDS: MELATONIN 5 MG TABLET PO SCH (20:53)
[2020-11-03] MEDS: OLANZAPINE 10 MG TABLET PO SCH (20:53)
[2020-11-04] MEDS: ASPIRIN 81 MG TABLET EC PO SCH (05:42)
[2020-11-04] MEDS: PIPERONYL BUTOXIDE/PYRETHRINS 4OZ. SHAMPOO TP SCH (07:34)
[2020-11-04 07:59] VITALS: BP 116/68
[2020-11-04] MEDS: FLUOXETINE HCL 20 MG CAPSULE PO SCH (09:39)
[2020-11-04] MEDS: NICOTINE 7 MG/24 HR PATCH.TD24 TD SCH (09:39)
[2020-11-04] MEDS: FOLIC ACID 1 MG TABLET PO SCH (09:39)
[2020-11-04] MEDS: THIAMINE 100MG TABLET PO SCH (09:39)
[2020-11-04] MEDS: BENZTROPINE 1 MG TABLET PO SCH ×2 (09:39→20:39)
[2020-11-04 19:50] VITALS: BP 119/72
[2020-11-04] MEDS: MELATONIN 5 MG TABLET PO SCH (20:39)
[2020-11-04] MEDS: ATORVASTATIN 40 MG TABLET PO SCH (20:39)
[2020-11-04] MEDS: OLANZAPINE 10 MG TABLET PO SCH (20:39)
[2020-11-04] MEDS: TRAZODONE 50MG TABLET PO SCH (20:39)
[2020-11-05] MEDS: ASPIRIN 81 MG TABLET EC PO SCH (05:34)
[2020-11-05 08:03] VITALS: BP 137/85
[2020-11-05] MEDS: BENZTROPINE 1 MG TABLET PO SCH ×2 (09:38→20:47)
[2020-11-05] MEDS: NICOTINE 7 MG/24 HR PATCH.TD24 TD SCH (09:38)
[2020-11-05] MEDS: THIAMINE 100MG TABLET PO SCH (09:38)
[2020-11-05] MEDS: FLUOXETINE HCL 20 MG CAPSULE PO SCH (09:39)
[2020-11-05] MEDS: FOLIC ACID 1 MG TABLET PO SCH (09:39)
[2020-11-05 20:19] VITALS: BP 144/82
[2020-11-05] MEDS: MELATONIN 5 MG TABLET PO SCH (20:47)
[2020-11-05] MEDS: TRAZODONE 50MG TABLET PO SCH (20:47)
[2020-11-05] MEDS: OLANZAPINE 10 MG TABLET PO SCH (20:47)
[2020-11-05] MEDS: ATORVASTATIN 40 MG TABLET PO SCH (20:47)
[2020-11-06] MEDS: ASPIRIN 81 MG TABLET EC PO SCH (06:02)
[2020-11-06 07:36] VITALS: BP 107/67
[2020-11-06] MEDS: THIAMINE 100MG TABLET PO SCH (09:40)
[2020-11-06] MEDS: FLUOXETINE HCL 20 MG CAPSULE PO SCH (09:40)
[2020-11-06] MEDS: FOLIC ACID 1 MG TABLET PO SCH (09:40)
[2020-11-06] MEDS: BENZTROPINE 1 MG TABLET PO SCH ×2 (09:40→20:38)
[2020-11-06] MEDS: NICOTINE 7 MG/24 HR PATCH.TD24 TD SCH (09:40)
[2020-11-06 20:00] VITALS: BP 106/69
[2020-11-06] MEDS: OLANZAPINE 10 MG TABLET PO SCH (20:38)
[2020-11-06] MEDS: ATORVASTATIN 40 MG TABLET PO SCH (20:38)
[2020-11-06] MEDS: TRAZODONE 50MG TABLET PO SCH (20:38)
[2020-11-06] MEDS: MELATONIN 5 MG TABLET PO SCH (20:38)
[2020-11-07] MEDS: ASPIRIN 81 MG TABLET EC PO SCH (05:53)
[2020-11-07 07:19] VITALS: BP 126/79
[2020-11-07] MEDS: FLUOXETINE HCL 20 MG CAPSULE PO SCH (08:46)
[2020-11-07] MEDS: BENZTROPINE 1 MG TABLET PO SCH ×2 (08:46→20:44)
[2020-11-07] MEDS: NICOTINE 7 MG/24 HR PATCH.TD24 TD SCH (08:46)
[2020-11-07] MEDS: FOLIC ACID 1 MG TABLET PO SCH (08:47)
[2020-11-07] MEDS: THIAMINE 100MG TABLET PO SCH (08:47)
[2020-11-07 20:04] VITALS: BP 110/69
[2020-11-07] MEDS: TRAZODONE 50MG TABLET PO SCH (20:44)
[2020-11-07] MEDS: ATORVASTATIN 40 MG TABLET PO SCH (20:44)
[2020-11-07] MEDS: MELATONIN 5 MG TABLET PO SCH (20:44)
[2020-11-07] MEDS: OLANZAPINE 10 MG TABLET PO SCH (20:44)
[2020-11-08] MEDS: ASPIRIN 81 MG TABLET EC PO SCH (06:15)
[2020-11-08 07:47] VITALS: BP 121/80
[2020-11-08] MEDS: FLUOXETINE HCL 20 MG CAPSULE PO SCH (08:27)
[2020-11-08] MEDS: BENZTROPINE 1 MG TABLET PO SCH ×2 (08:27→20:17)
[2020-11-08] MEDS: FOLIC ACID 1 MG TABLET PO SCH (08:27)
[2020-11-08] MEDS: THIAMINE 100MG TABLET PO SCH (08:27)
[2020-11-08] MEDS: NICOTINE 7 MG/24 HR PATCH.TD24 TD SCH (08:28)
[2020-11-08 19:38] VITALS: BP 123/76
[2020-11-08] MEDS: MELATONIN 5 MG TABLET PO SCH (20:16)
[2020-11-08] MEDS: TRAZODONE 50MG TABLET PO SCH (20:17)
[2020-11-08] MEDS: OLANZAPINE 10 MG TABLET PO SCH (20:17)
[2020-11-08] MEDS: ATORVASTATIN 40 MG TABLET PO SCH (20:17)
[2020-11-09] MEDS: ASPIRIN 81 MG TABLET EC PO SCH (06:27)
[2020-11-09 07:47] VITALS: BP 123/61
[2020-11-09] MEDS: THIAMINE 100MG TABLET PO SCH (08:47)
[2020-11-09] MEDS: FLUOXETINE HCL 20 MG CAPSULE PO SCH (08:47)
[2020-11-09] MEDS: FOLIC ACID 1 MG TABLET PO SCH (08:47)
[2020-11-09] MEDS: BENZTROPINE 1 MG TABLET PO SCH ×2 (08:47→21:35)
[2020-11-09] MEDS: NICOTINE 7 MG/24 HR PATCH.TD24 TD SCH (08:48)
[2020-11-09 19:47] VITALS: BP 110/70
[2020-11-09] MEDS: ATORVASTATIN 40 MG TABLET PO SCH (21:34)
[2020-11-09] MEDS: OLANZAPINE 10 MG TABLET PO SCH (21:34)
[2020-11-09] MEDS: MELATONIN 5 MG TABLET PO SCH (21:35)
[2020-11-09] MEDS: TRAZODONE 50MG TABLET PO SCH (21:35)
[2020-11-10] MEDS: ASPIRIN 81 MG TABLET EC PO SCH (05:52)
[2020-11-10 07:33] VITALS: BP 111/70
[2020-11-10] MEDS: BENZTROPINE 1 MG TABLET PO SCH ×2 (08:31→20:46)
[2020-11-10] MEDS: FOLIC ACID 1 MG TABLET PO SCH (08:31)
[2020-11-10] MEDS: NICOTINE 7 MG/24 HR PATCH.TD24 TD SCH (08:32)
[2020-11-10] MEDS: FLUOXETINE HCL 20 MG CAPSULE PO SCH (08:32)
[2020-11-10] MEDS: THIAMINE 100MG TABLET PO SCH (08:32)
[2020-11-10] MEDS: LORazepam 0.5MG TABLET PO PRN (10:29)
[2020-11-10] MEDS: PIPERONYL BUTOXIDE/PYRETHRINS 4OZ. SHAMPOO TP SCH (13:00)
[2020-11-10 19:03] VITALS: BP 138/76
[2020-11-10] MEDS: TRAZODONE 50MG TABLET PO SCH (20:46)
[2020-11-10] MEDS: ATORVASTATIN 40 MG TABLET PO SCH (20:46)
[2020-11-10] MEDS: OLANZAPINE 10 MG TABLET PO SCH (20:46)
[2020-11-10] MEDS: MELATONIN 5 MG TABLET PO SCH (20:46)
[2020-11-11] MEDS: ASPIRIN 81 MG TABLET EC PO SCH (06:00)
[2020-11-11 07:37] VITALS: BP 124/74
[2020-11-11] MEDS: NICOTINE 7 MG/24 HR PATCH.TD24 TD SCH (08:10)
[2020-11-11] MEDS: THIAMINE 100MG TABLET PO SCH (08:10)
[2020-11-11] MEDS: FOLIC ACID 1 MG TABLET PO SCH (08:11)
[2020-11-11] MEDS: FLUOXETINE HCL 20 MG CAPSULE PO SCH (08:11)
[2020-11-11] MEDS: BENZTROPINE 1 MG TABLET PO SCH ×2 (08:11→20:51)
[2020-11-11] MEDS: LORazepam 0.5MG TABLET PO PRN (08:32)
[2020-11-11 19:28] VITALS: BP 123/77
[2020-11-11] MEDS: TRAZODONE 50MG TABLET PO SCH (20:51)
[2020-11-11] MEDS: ATORVASTATIN 40 MG TABLET PO SCH (20:51)
[2020-11-11] MEDS: OLANZAPINE 10 MG TABLET PO SCH (20:51)
[2020-11-11] MEDS: MELATONIN 5 MG TABLET PO SCH (20:51)
[2020-11-12] MEDS: ASPIRIN 81 MG TABLET EC PO SCH (06:06)
[2020-11-12 07:39] VITALS: BP 120/71
[2020-11-12] MEDS: THIAMINE 100MG TABLET PO SCH (08:34)
[2020-11-12] MEDS: BENZTROPINE 1 MG TABLET PO SCH ×2 (08:35→20:25)
[2020-11-12] MEDS: FLUOXETINE HCL 20 MG CAPSULE PO SCH (08:35)
[2020-11-12] MEDS: FOLIC ACID 1 MG TABLET PO SCH (08:35)
[2020-11-12] MEDS: NICOTINE 7 MG/24 HR PATCH.TD24 TD SCH (08:36)
[2020-11-12 19:39] VITALS: BP 112/69
[2020-11-12] MEDS: ATORVASTATIN 40 MG TABLET PO SCH (20:25)
[2020-11-12] MEDS: MELATONIN 5 MG TABLET PO SCH (20:25)
[2020-11-12] MEDS: OLANZAPINE 10 MG TABLET PO SCH (20:25)
[2020-11-12] MEDS: TRAZODONE 50MG TABLET PO SCH (20:25)
[2020-11-13] MEDS: ASPIRIN 81 MG TABLET EC PO SCH (05:53)
[2020-11-13 07:46] VITALS: BP 133/82
[2020-11-13] MEDS: FOLIC ACID 1 MG TABLET PO SCH (08:39)
[2020-11-13] MEDS: FLUOXETINE HCL 20 MG CAPSULE PO SCH (08:39)
[2020-11-13] MEDS: BENZTROPINE 1 MG TABLET PO SCH ×2 (08:41→21:06)
[2020-11-13] MEDS: THIAMINE 100MG TABLET PO SCH (08:42)
[2020-11-13] MEDS: NICOTINE 7 MG/24 HR PATCH.TD24 TD SCH (08:44)
[2020-11-13] MEDS: LORazepam 0.5MG TABLET PO PRN (10:58)
[2020-11-13] MEDS ORDERED: FLUO20CA23 PO (17:03)
[2020-11-13] MEDS ORDERED: TRAZ50TA66 PO (17:03)
[2020-11-13] MEDS ORDERED: OLAN10TA69 PO (17:03)
[2020-11-13] MEDS ORDERED: MELA5TAB14 PO (17:03)
[2020-11-13] MEDS ORDERED: ATOR40TA78 PO (17:03)
[2020-11-13] MEDS ORDERED: ASPI81TA45 PO (17:03)
[2020-11-13] MEDS ORDERED: BENZ1TAB61 PO (17:03)
[2020-11-13] MEDS ORDERED: NICO-485 TD (17:03)
[2020-11-13 19:20] VITALS: BP 116/71
[2020-11-13] MEDS: MELATONIN 5 MG TABLET PO SCH (21:06)
[2020-11-13] MEDS: ATORVASTATIN 40 MG TABLET PO SCH (21:06)
[2020-11-13] MEDS: OLANZAPINE 10 MG TABLET PO SCH (21:06)
[2020-11-13] MEDS: TRAZODONE 50MG TABLET PO SCH (21:06)
[2020-11-14] MEDS: ASPIRIN 81 MG TABLET EC PO SCH (05:57)
[2020-11-14 07:43] VITALS: BP 128/79
[2020-11-14] MEDS: BENZTROPINE 1 MG TABLET PO SCH (08:33)
[2020-11-14] MEDS: FLUOXETINE HCL 20 MG CAPSULE PO SCH (08:33)
[2020-11-14] MEDS: FOLIC ACID 1 MG TABLET PO SCH (08:34)
[2020-11-14] MEDS: THIAMINE 100MG TABLET PO SCH (08:34)
[2020-11-14] MEDS: NICOTINE 7 MG/24 HR PATCH.TD24 TD SCH (08:37)
== END 2020-11-14 10:22 | disposition home or self-care (01) | DRG 885 ==
LOC: 3E 23:20
PROVIDERS: ADMIT Psychiatry & Neurology Psychosomatic Medicine; ATTEND Psychiatry & Neurology Psychosomatic Medicine
DX: F33.2 Major depressive disorder, recurrent severe without psychotic features (principal); R45.851 Suicidal ideations; F20.0 Paranoid schizophrenia; E78.5 Hyperlipidemia, unspecified; F12.90 Cannabis use, unspecified, uncomplicated; F17.200 Nicotine dependence, unspecified, uncomplicated; G47.00 Insomnia, unspecified; F10.20 Alcohol dependence, uncomplicated; F19.10 Other psychoactive substance abuse, uncomplicated; I25.10 Atherosclerotic heart disease of native coronary artery without angina pectoris; Z59.0 Homelessness; Z79.82 Long term (current) use of aspirin; Z79.899 Other long term (current) drug therapy
CPT/HCPCS: 36415; 71045; 80053; 80061; 81003; 82140; 82607; 84439; 84443; 85025; 93005; Q0177